=== PATIENT | female | born 1980 | race Caucasian/White ===

== ENCOUNTER 2019-03-05 06:37 | Day surgery (SDC) | payer BC, SELFPAY ==
[2019-03-03 11:32] VITALS: BMI 61.6
--- NOTE | 2019-03-03 12:22 | ANES.PREANES ---
Pre-Anesthetic Assessment Pre-Anesthetic Assessment: Height/Weight: Height 1.57 m Weight 152.861 kg Proposed Procedure: Operation Date: 03/05/19 07:00 Proposed Procedures p Laparoscopic Tubal Fulguration 06038 With Salpingectomy(Not Applicable) - Koby Marquez MD s Laparoscopic Salpingectomy 32937(Not Applicable) - Koby Marquez MD Social: Social History: No alcohol and No tobacco Airway: Cervical ROM: WNL MP: 2 Dentition: Full Pulmonary: Pulmonary: None reported CV/HEM: CV/HEM: None reported : : None reported Hepatic: Hepatic: None reported GI: GI: GERD Metabolic: Metabolic: Morbid obesity Musc/skel: Musc/skel: None reported Neuropsych: Neuropsych: Anxiety and Depression Anesthetic Plan: ASA status: II Anesthesia: General PFSH Anesthesia PFSH: Family History Grandfather Diabetes maternal Grandmother Diabetes paternal Cervical cancer maternal Father Hypertension Family/Other Heart disease paternal uncle Eye problem paternal and maternal uncle Social History Smoking and tobacco status: never smoked Alcohol intake: never Substance/Drug Use: never Additional social history: poorly balanced diet Data Anesthesia Cardiac Studies: No Data to Display
[2019-03-03 13:02] LABS: OR HCG Qualitative Urine Negative (Negative)
[2019-03-03 13:53] LABS: Add Urine Microscopic? NO
[2019-03-03 14:02] LABS: Bilirubin Urine 1+ (NEGATIVE); Blood Urine Neg (Negative); Glucose Urine UA Norm (Normal); Ketones Urine Negative (Negative); Leukocyte Esterase Urine Negative (Negative); Nitrate Urine Negative (Negative); Protein Urine Neg (Negative); Specific Gravity, Urine 1.025 (1.005-1.030); Urine Appearance Clear (CLEAR); Urine Color Yellow (Yellow); Urobilinogen Urine 1 mg/dL (Negative)
[2019-03-03 17:30] LABS: Basophils % 0.2 %; Eosinophils # 0.2 10^3/uL (0.0-0.8); Eosinophils % 2.6 %; Lymphocytes # 2.6 10^3/uL (0.8-4.8); Lymphocytes % 29.2 %; Mean Corpuscular Hemoglobin 26.2 pg (28.0-34.0); Mean Corpuscular Volume 84.5 fL (81-99); Mean Platelet Volume 10.6 fL (7.4-10.4); Monocytes # 0.6 10^3/uL (0.2-0.9); Neutrophils # 5.3 10^3/uL (1.8-7.7); Neutrophils % 60.7 %; Nucleated Red Blood Cells % 0 %; Platelet Count 346 10^3/cmm (130-400); Red Blood Count 4.97 10^6/uL (4.1-5.3); Red Cell Distribution Width 13.5 % (12.1-15.1); White Blood Count 8.7 10^3/uL (4.0-10.0)
[2019-03-04 01:42] LABS: Blood Urea Nitrogen 15 mg/dL (6-20); Calcium 9.9 mg/Dl (8.6-10.0); Chloride 99 mmol/L (98-107); Glomerular Filtration Rate 111.9 mL/min (90-130); Glucose 95 mg/dL (74-109); Potassium 4.3 mmol/L (3.5-5.1); Sodium 136 mmol/L (136-145)
[2019-03-04 02:00] LABS: Anion Gap 19.3 (5-19); Carbon Dioxide 22 mmol/L (22-29)
[2019-03-05] VITALS (10 sets, daily range): BP systolic 145–173; BP diastolic 78–105; PULSE 47–74; RESP 15–20; TEMP 36.2–36.8; O2SAT 91–97
[2019-03-05] MEDS: sodium chloride 0.9% 1,000 ML 30 ML IV (07:05)
--- NOTE | 2019-03-05 07:33 | PM.HPUD ---
H&P update H&P Update: DATE OF SURGERY/PROCEDURE: 03/05/19 DATE H&P PERFORMED: 03/03/19 H&P UPDATE INFORMATION: H&P completed within last 30 days, No changes to prior documentation and H&P is in [facility] EMR on date indicated PREOP DIAGNOSIS: Desire permanent sterilization PLANNED PROCEDURE: Operation Date: 03/05/19 08:15 Proposed Procedures p Laparoscopic Tubal Fulguration 52575 With Salpingectomy(Not Applicable) - Koby Marquez MD s Laparoscopic Salpingectomy 92757(Not Applicable) - Koby Marquez MD Full H&P Medications/Allergies: Current Medications: Current Medications Generic Name Dose Route Start Last Admin Trade Name Freq PRN Reason Stop Dose Admin Sodium Chloride 1,000 mls @ 30 ml s/hr 03/05/19 06:00 03/05/19 07:05 Sodium Chloride 0.9% IV 03/06/19 05:59 30 mls/hr .Q24H SANCHEZ Administration Perinent History: Family History: Family History (Updated 02/25/19 @ 11:36 by Jessica Leiva RN) Grandfather Diabetes maternal Grandmother Diabetes paternal Cervical cancer maternal Father Hypertension Family/Other Heart disease paternal uncle Eye problem paternal and maternal uncle Social History: Social History Smoking and tobacco status: never smoked Alcohol intake: never Additional social history: poorly balanced diet
--- NOTE | 2019-03-05 10:11 | PM.PN ---
Subjective Subjective: Interval history: 38-year-old female G2, P2 scheduled for laparoscopic bilateral salpingectomy for undesired fertility. Vitals/I&O/Wt Last Vital Signs Temp 97.2 F L 03/05/19 06:47 Pulse 74 03/05/19 06:47 Resp 18 03/05/19 06:47 BP 145/100 03/05/19 06:47 Pulse Ox 97 03/05/19 06:47 Weight last 48 hrs Weight 337 lb A&P Additional A&P Information Additional A&P Information: After general anesthesia was initiated, patient could not ventilate properly and for safety reasons the case was canceled. Attestations Medical Necessity Statement*: My professional opinion per my admitting diagnosis Coding Level of Care Code Acute Change Number Operator for Ledy Chaudhari
--- NOTE | 2019-03-05 10:21 | SUR.PHASEI ---
1017- RECEIVED PATIENT IN PACU FROM OR VIA [facility]. RESP ARE EVEN AND NONLABORED. SHE IS AWAKE AND ALERT, DROWSY. SIMPLE MASK APPLIED AT 6LPM, SAT 92%. NO S/S PAIN OR NAUSEA. DR. GIFFORD AT THE BEDSIDE
[2019-03-05] MEDS: ondansetron 2 mg/ML SDV 2 mL 4 MG IVP (10:37)
--- NOTE | 2019-03-05 11:10 | SUR.PHASEI ---
1050- TRANSFERRED PATIENT FROM PACU TO OPS [facility]IA [facility]. RESP ARE EVEN AND NONLABORED. SAT 97% WITH 2L/NC. SHE IS AWAKE AND ALERT, DROWSY. DENIES PAIN. TRANSITION OF CARE TO [facility]
--- NOTE | 2019-03-05 13:27 | ANE.PACU ---
 Inpatient post-anesthesia follow up: Airway intact: Yes Vital signs: Temperature 98.1 F Pulse Rate [Right Radial] 47 Pulse Rate [Left A pical] 54 Respiratory Rate 18 Blood Pressure [Le ft Calf] 165/98 Blood Pressure [Ri ght Arm] 145/100 Pulse Oximetry 95 Oxygen Delivery Me thod Room Air Oxygen Flow Rate 2 Fraction of Inspir ed Oxygen Hydration adequate: Yes Nausea and vomiting: No Pain level: 1 Mental status: Baseline Additional Comments: Procedure aborted due to high peak airway pressure (>45 with low tidal volumes, resistant to albuterol, deepening of anesthestic, and repositioning (reverse T). Occured after intubation before incision or abdominal insufflation. Patient denies recent colds or viruses or asthma.
== END 2019-03-05 12:05 | disposition home or self-care (01) ==
PROVIDERS: Family Provider Nurse Practitioner Family; PCP Nurse Practitioner Family; Visit Provider Obstetrics & Gynecology
PROC: (CPT 58670; principal; 2019-03-05 08:15)
DX: Z53.8 Procedure and treatment not carried out for other reasons (principal); Z30.2 Encounter for sterilization; E66.01 Morbid (severe) obesity due to excess calories; Z68.44 Body mass index [BMI] 60.0-69.9, adult; Z82.49 Family history of ischemic heart disease and other diseases of the circulatory system; Z83.3 Family history of diabetes mellitus
CPT/HCPCS: 58670; 36415; 80048; 81003; 84703; 85025; 86850; 86900; J0330; J0690; J2001; J2405; J2704; J2710; J3010; J3490; J3535; J7030

== ENCOUNTER → 2019-04-08 09:34 | Outpatient (BNVA) | payer BC, SELFPAY | PROVIDERS: Visit Provider Family Medicine | DX: E55.9 Vitamin D deficiency, unspecified (principal); I10 Essential (primary) hypertension | CPT/HCPCS: 80053; 80061; 82306; 85025 ==

== ENCOUNTER 2019-04-15 09:04 | Outpatient (CLI) | payer BC, SELFPAY ==
--- NOTE | 2019-04-15 09:10 | XR_ITS ---
WS: [id number] XR chest 2V* [id number] REASON FOR EXAM: shortness of breath FINDINGS: The heart and mediastinal interfaces were normal. The lung paredes are adequately aerated. No pneumonia, pleural effusion, pulmonary edema, or mass effe ct. The hilum and apices are normal. No osseous abnormalities. XR/XR chest 2V* [id number] IMPRESSION: Negative chest for active pathology.
== END 2019-04-15 09:05 | disposition home or self-care (01) ==
LOC: RAD 09:07
PROVIDERS: Visit Provider Internal Medicine Critical Care Medicine
DX: R06.02 Shortness of breath (principal)
CPT/HCPCS: 71046

== ENCOUNTER → 2019-10-10 10:30 | Outpatient (BNVA) | payer BC, SELFPAY | PROVIDERS: Visit Provider Nurse Practitioner Family | DX: I10 Essential (primary) hypertension (principal); E55.9 Vitamin D deficiency, unspecified | CPT/HCPCS: 80053; 80061; 82306; 82607; 83735; 84443; 85025 ==

== ENCOUNTER → 2020-01-14 08:53 | Outpatient (BNVA) | payer BC, SELFPAY | PROVIDERS: Visit Provider Nurse Practitioner Family | DX: I10 Essential (primary) hypertension (principal); E55.9 Vitamin D deficiency, unspecified; G43.009 Migraine without aura, not intractable, without status migrainosus; G47.00 Insomnia, unspecified; F41.9 Anxiety disorder, unspecified; F32.9 Major depressive disorder, single episode, unspecified; K21.9 Gastro-esophageal reflux disease without esophagitis | CPT/HCPCS: 80053; 80061; 82306; 84443; 85025 ==

== ENCOUNTER → 2020-01-28 13:38 | Outpatient (BNVA) | payer BC, SELFPAY | PROVIDERS: Visit Provider Nurse Practitioner Family | DX: Z20.828 Contact with and (suspected) exposure to other viral communicable diseases (principal); J06.9 Acute upper respiratory infection, unspecified | CPT/HCPCS: 87635 ==

== ENCOUNTER → 2020-03-30 09:46 | Outpatient (BNVA) | payer BC, SELFPAY | PROVIDERS: Visit Provider Nurse Practitioner Family | DX: M79.671 Pain in right foot (principal); M77.31 Calcaneal spur, right foot | CPT/HCPCS: 73630 ==

== ENCOUNTER → 2020-06-28 09:26 | Outpatient (BNVA) | payer BC, SELFPAY | PROVIDERS: Visit Provider Nurse Practitioner Family | DX: I10 Essential (primary) hypertension (principal); E55.9 Vitamin D deficiency, unspecified; R19.7 Diarrhea, unspecified; F41.9 Anxiety disorder, unspecified; F32.9 Major depressive disorder, single episode, unspecified; G47.00 Insomnia, unspecified; K21.9 Gastro-esophageal reflux disease without esophagitis; G43.009 Migraine without aura, not intractable, without status migrainosus | CPT/HCPCS: 80053; 80061; 82306; 82607; 83735; 84443; 85025 ==

== ENCOUNTER → 2020-06-29 12:11 | Outpatient (BNVA) | payer BC, SELFPAY | PROVIDERS: Visit Provider Nurse Practitioner Family | DX: R19.7 Diarrhea, unspecified (principal) | CPT/HCPCS: 83630; 87493; 87506 ==

== ENCOUNTER → 2020-07-31 13:16 | Outpatient (BNVA) | payer BC, SELFPAY | PROVIDERS: Visit Provider Nurse Practitioner Family | DX: M77.32 Calcaneal spur, left foot (principal); M79.672 Pain in left foot | CPT/HCPCS: 73630 ==

== ENCOUNTER → 2020-09-22 10:21 | Outpatient (BNVA) | payer BC, SELFPAY | PROVIDERS: Visit Provider Nurse Practitioner Family | DX: J06.9 Acute upper respiratory infection, unspecified (principal); Z20.822 Contact with and (suspected) exposure to COVID-19 | CPT/HCPCS: 87635 ==

== ENCOUNTER → 2020-09-29 09:05 | Outpatient (BNVA) | payer BC, SELFPAY | PROVIDERS: Visit Provider Nurse Practitioner Family | DX: R19.7 Diarrhea, unspecified (principal) | CPT/HCPCS: 87338; 87493; 87506 ==

== ENCOUNTER 2020-10-11 13:21 | Outpatient (CLI) | payer BC, SELFPAY | END 2020-10-11 13:22 | disposition home or self-care (01) | LOC: LAB 11-16 12:16 | PROVIDERS: Visit Provider Nurse Practitioner Family | DX: R10.9 Unspecified abdominal pain (principal) | CPT/HCPCS: 80053; 81000; 85025 ==

== ENCOUNTER 2020-10-26 08:49 | Outpatient (CLI) | payer BC, SELFPAY ==
[2020-10-26] MEDS: iohexol 300 mg/mL 100 mL Btl IV (09:32)
--- NOTE | 2020-10-26 10:30 | CT_ITS ---
WS: [id number] CT ABDOMEN PELVIS TECHNIQUE: Contrast-enhanced CT of the abdomen and pelvis with coronal and sagittal reformatted image s. CLINICAL INFORMATION: R10.30 - Lower abdominal pain, unspecified COMPARISON: CT August 31, 2016 DLP: 2485.[address] scans at [facility] use at least one of these dose optimization techniques: automat ed exposure control; mA and/or kV adjustment per patient size (includes targeted exams where dose is matched to clinical indication); or iterative reconstruction. FINDINGS: Hepatomegaly. Diffuse fatty infiltration of the liver. Normal gallbladder. Normal spleen. Lung bases are well aerated. Stable tiny noncalcified nodule anterior right upper lobe unchanged since 2017. Nor mal GE junction. Adrenal glands are normal. Normal renal parenchymal enhancement. No hydronephrosis. Normal pancreas. Normal caliber abdominal aorta. Normal sigmoid colon. No evidence of small or large bowel obstruction. No abdominal or pelvic lymphad enopathy. Tiny fat-containing umbilical hernia. No free fluid in the pelvis. Number lumbar spine. CT/CT abdomen pelvis w con* [id number] IMPRESSION: 1. Diffuse fatty infiltration of the liver. Hepatomegaly. 2. No hydronephrosis in either kidney. Normal renal parenchymal enhancement. 3. Normal caliber abdominal aorta. 4. No abdominal or pelvic lymphadenopathy. 5. No evidence of small or large bowel obstruction. 6. No free fluid in the pelvis. 7. Tiny fat-containing umbilical hernia. 8. No other significant findings.
== END 2020-10-26 08:50 | disposition home or self-care (01) ==
PROVIDERS: Visit Provider Nurse Practitioner Family
DX: R10.30 Lower abdominal pain, unspecified (principal); K76.0 Fatty (change of) liver, not elsewhere classified; K42.9 Umbilical hernia without obstruction or gangrene
CPT/HCPCS: 74177; 80053; 81000; 85025; Q9967

== ENCOUNTER → 2021-05-25 16:00 | Outpatient (BNVA) | payer BC, MEDICAID, SELFPAY | PROVIDERS: PCP Nurse Practitioner Family; Visit Provider Nurse Practitioner Family | DX: I10 Essential (primary) hypertension (principal); E66.01 Morbid (severe) obesity due to excess calories; K21.9 Gastro-esophageal reflux disease without esophagitis; E55.9 Vitamin D deficiency, unspecified; Z12.39 Encounter for other screening for malignant neoplasm of breast; F41.9 Anxiety disorder, unspecified; F32.9 Major depressive disorder, single episode, unspecified; G43.009 Migraine without aura, not intractable, without status migrainosus | CPT/HCPCS: 80053; 80061; 82306; 82607; 83036; 83735; 84443; 85025 ==

== ENCOUNTER → 2021-07-15 08:26 | Outpatient (BNVA) | payer BC, MEDICAID, SELFPAY | PROVIDERS: PCP Nurse Practitioner Family; Visit Provider Psychiatry & Neurology Psychiatry | DX: F41.1 Generalized anxiety disorder (principal); F33.1 Major depressive disorder, recurrent, moderate; Z30.013 Encounter for initial prescription of injectable contraceptive; Z30.09 Encounter for other general counseling and advice on contraception | CPT/HCPCS: 99204 ==

== ENCOUNTER 2021-07-28 12:52 | Outpatient (CLI) | payer BC, MEDICAID, SELFPAY ==
--- NOTE | 2021-07-28 13:13 | MM_ITS ---
WS: [id number] BILATERAL 3D TOMOSYNTHESIS DIGITAL SCREENING MAMMOGRAM WITH CAD CLINICAL INFORMATION: SCREENING HISTORY: Screening mammogram. No current complaints. COMPARISON: None. TECHNIQUE: Bilateral CC and MLO views. FINDINGS: Fatty-replaced breasts bilaterally. No suspicious focal mass, asymmetry, calcifications, or senior software architect ural distortion. No evidence of malignancy. MM/[place] [id number] IMPRESSION: BI-RADS: 1-Negative FOLLOW UP: 1 Year Follow-up Recommend return to annual screening mammography.
== END 2021-07-28 12:53 | disposition home or self-care (01) ==
LOC: RAD 12:57
PROVIDERS: PCP Nurse Practitioner Family; Visit Provider Nurse Practitioner Family
DX: Z12.31 Encounter for screening mammogram for malignant neoplasm of breast (principal)
CPT/HCPCS: 77063; 77067

== ENCOUNTER 2022-06-26 20:00 | Outpatient (CLI) | payer BC, SELFPAY | END 2022-06-26 20:01 | disposition home or self-care (01) | LOC: SLEEP 06-27 06:23 | PROVIDERS: PCP Nurse Practitioner Family; Visit Provider Nurse Practitioner Family | DX: G47.33 Obstructive sleep apnea (adult) (pediatric) (principal) | CPT/HCPCS: 95810 ==

== ENCOUNTER → 2022-08-24 14:56 | Outpatient (BNVA) | payer BC, MEDICAID, SELFPAY | PROVIDERS: PCP Nurse Practitioner Family; Visit Provider Nurse Practitioner Family | DX: M19.071 Primary osteoarthritis, right ankle and foot (principal); M77.31 Calcaneal spur, right foot | CPT/HCPCS: 73630 ==

== ENCOUNTER 2022-09-04 14:50 | Outpatient (CLI) | payer BC, MEDICAID, SELFPAY ==
--- NOTE | 2022-09-04 14:57 | MM_ITS ---
WS: [id number] BILATERAL 3D TOMOSYNTHESIS DIGITAL SCREENING MAMMOGRAM WITH CAD CLINICAL INFORMATION: SCREENING HISTORY: Screening mammogram. No current complaints. COMPARISON: July 28, 2021 TECHNIQUE: Bilateral CC and MLO views. FINDINGS: Fatty-replaced breasts bilaterally. No suspicious focal mass, asymmetry, calcifications, or sap technical architect ural distortion. No evidence of malignancy. MM/[place] [id number] IMPRESSION: BI-RADS: 1-Negative FOLLOW UP: 1 Year Follow-up Recommend return to annual screening mammography.
== END 2022-09-04 14:51 | disposition home or self-care (01) ==
PROVIDERS: PCP Nurse Practitioner Family; Visit Provider Nurse Practitioner Family
DX: Z12.31 Encounter for screening mammogram for malignant neoplasm of breast (principal)
CPT/HCPCS: 77063; 77067

== ENCOUNTER 2022-12-07 16:06 | Outpatient (CLI) | payer BC, MEDICAID, SELFPAY ==
--- NOTE | 2022-12-07 16:25 | XRR_ITS ---
PROCEDURE INFORMATION: Exam: XR Left Knee Exam date and time: 12/07/2022 4:27 PM Age: 41 years old Clinical indication: Patient HX: Left knee pain for 1 month; Additional info: Body mass index (bmi) 70 or greater TECHNIQUE: Imaging protocol: Radiologic exam of the left knee. Views: 3 views. COMPARISON: CR XR knee LT 3V* [id number] 02/09/2016 11:55 AM FINDINGS: Bones/joints: No fracture or other acute abnormality. There is medial compartment joint space narrowing. Small tricompartmental periarticular osteophytes are seen. The knee is otherwise normal. Soft tissues: Normal. XR/XR knee LT 3V* [id number] IMPRESSION: Degenerative findings predominantly in the medial compartment. This has progressed since the prior examination.
== END 2022-12-07 16:07 | disposition home or self-care (01) ==
LOC: RAD 16:10
PROVIDERS: PCP Nurse Practitioner Family; Visit Provider Nurse Practitioner Family
DX: M25.562 Pain in left knee (principal); Z68.45 Body mass index [BMI] 70 or greater, adult; M23.8X2 Other internal derangements of left knee
CPT/HCPCS: 73562

== ENCOUNTER → 2023-01-11 14:18 | Outpatient (BNVA) | payer BC, SELFPAY | PROVIDERS: PCP Nurse Practitioner Family; Visit Provider Student in an Organized Health Care Education/Training Program | DX: M17.12 Unilateral primary osteoarthritis, left knee; E66.01 Morbid (severe) obesity due to excess calories; Z68.45 Body mass index [BMI] 70 or greater, adult | CPT/HCPCS: 73560; 73565 ==

== ENCOUNTER 2023-01-24 07:00 | Day surgery (SDC) | payer BC, MEDICAID, SELFPAY ==
[2023-01-24 07:23] VITALS: BP 169/96; PULSE 83; RESP 18; TEMP 36.4; O2SAT 97; BMI 75.9
--- NOTE | 2023-01-24 07:46 | P.ANESASSM_ITS ---
Pre-Anesthetic Assessment Height/Weight: Height 1.57 m Weight 188.241 kg Temp Pulse Resp BP Pulse Ox O2 Del Method 97.6 F 83 18 169/96 97 Room Air 01/24/23 07:23 01/24/23 07:23 01/24/23 07:23 01/24/23 07:23 01/24/23 07:23 01/24/23 07:23 Operation Date: 01/24/23 08:00 Proposed Procedures p 88033 egd [id number] diagnostic colonoscopy, G0121 screen colon A risk k52.9,k92.1,k90.9(Not Applicable) - DO patricia Miles Colonoscopy(Not Applicable) - Damien Gallegos DO Familial anesthetic complications: none Last intake: Intake Last Liquid Date 01/23/23 Last Liquid Time 22:00 Last Solid Date 01/22/23 Last Solid Time 17:00 Social No alcohol and No tobacco Exam alert, oriented x 3, clear to auscultation bilaterally and regular rate & rhythm Airway Submandibular: within normal limits Cervical ROM: within normal limits Mallampati: Class II Comments: Comments: WNL History/ROS No significant history except as noted Pulmonary Sleep Apnea CV/HEM None reported None reported Hepatic None reported Metabolic Morbid Obesity [facility] Osteoarthritis/DJD (left knee) Neuropsych Anxiety and Depression Anesthetic Plan ASA status: 3 Anesthesia: Anesthesia Evaluation and MAC Risk of > 500 ml blood loss (7ml/kg in children): No Medications/Allergies Home Medications Medication Instructions Recorded Confirmed Last Taken Type omeprazole 20 mg capsule,delayed 20 mg PO BID #180 caps 05/25/21 01/24/23 01/22/23 Rx release propranolol 40 mg tablet 40 mg PO BID 90 days #180 tabs 05/25/21 01/24/23 01/22/23 Rx sumatriptan succinate 100 mg tablet See Rx Instructions PO .COMPLEX 05/25/21 01/22/23 Unknown Rx #10 tabs acetaminophen 325 mg capsule 325 mg PO DAILY PRN Pain 07/15/21 01/24/23 Unknown History (Tylenol) ibuprofen 200 mg tablet 800 mg PO BID PRN fever or pain 07/15/21 01/24/23 Unknown History cholecalciferol (vitamin D3) 1,250 See Rx Instructions .Route 11/18/21 01/24/23 01/22/23 Rx mcg (50,000 unit) capsule .COMPLEX #4 caps medroxyprogesterone 150 mg/mL mg IM .Q 3 months 04/24/22 01/11/23 01/10/23 History intramuscular suspension (Depo-Provera) aripiprazole 5 mg tablet 5 mg PO DAILY #30 tabs 01/01/23 01/24/23 01/22/23 Rx bupropion HCl 150 mg 24 hr tablet, 150 mg PO QAM #30 tabs 01/01/23 01/24/23 01/22/23 Rx extended release (Wellbutrin XL) buspirone 10 mg tablet 10 mg PO BID #60 tabs 01/01/23 01/24/23 01/22/23 Rx sertraline 100 mg tablet 200 mg (2 x 100 mg) PO DAILY #60 01/01/23 01/24/23 01/22/23 Rx tabs Allergies Allergy/AdvReac Type Severity Reaction Status Date / Time No Known Allergies Allergy Verified 01/11/23 14:21 [facility] Anesthesia Medical History GERD (gastroesophageal reflux disease) Hypertension Migraines Obesity, morbid (more than 100 lbs over ideal weight or BMI > 40) Psychiatric care Surgical History History of appendectomy 08/31/2016 History of delivery x2 Family History Grandfather Diabetes maternal Grandmother Diabetes paternal Cervical cancer maternal Father Hypertension Family/Other Heart disease paternal uncle Eye problem paternal and maternal uncle Social History Smoking and tobacco/nicotine status: never used tobacco/nicotine Second hand smoke exposure: Yes (Sometimes.) Alcohol intake: current Alcohol intake frequency: holidays/special occasions only Alcohol type: other Substance/Drug Use: never Lives independently: Yes Household members: family service: No Current occupational status: employed Current occupation: [employer] Current occupational exposures/hazards: No Do you think of yourself as: Straight/Heterosexual Current gender identity: Female Special marlene needs: No Agree to transfusion: Yes Data Anesthesia Cardiac Studies: No Data to Display
[2023-01-24] MEDS: sodium chloride 0.9% 1,000 ML 30 ML IV (07:47)
--- NOTE | 2023-01-24 08:08 | PM.HP ---
Providers/Chief Complaint Primary Care Provider: Nelida Wilkins [employer] Chief Complaint: K52.9, K92.1, k90.9 History of Present Illness Elise Costello is a 42 year old female Review of Systems General: Reports: 10 or more systems reviewed and unremarkable except in HPI and below Medications/Allergies Home Medications Medication Instructions Recorded Confirmed Last Taken Type omeprazole 20 mg capsule,delayed 20 mg PO BID #180 caps 05/25/21 01/24/23 01/22/23 Rx release propranolol 40 mg tablet 40 mg PO BID 90 days #180 tabs 05/25/21 01/24/23 01/22/23 Rx sumatriptan succinate 100 mg tablet See Rx Instructions PO .COMPLEX 05/25/21 01/22/23 Unknown Rx #10 tabs acetaminophen 325 mg capsule 325 mg PO DAILY PRN Pain 07/15/21 01/24/23 Unknown History (Tylenol) ibuprofen 200 mg tablet 800 mg PO BID PRN fever or pain 07/15/21 01/24/23 Unknown History cholecalciferol (vitamin D3) 1,250 See Rx Instructions .Route 11/18/21 01/24/23 01/22/23 Rx mcg (50,000 unit) capsule .COMPLEX #4 caps medroxyprogesterone 150 mg/mL mg IM .Q 3 months 04/24/22 01/11/23 01/10/23 History intramuscular suspension (Depo-Provera) aripiprazole 5 mg tablet 5 mg PO DAILY #30 tabs 01/01/23 01/24/23 01/22/23 Rx bupropion HCl 150 mg 24 hr tablet, 150 mg PO QAM #30 tabs 01/01/23 01/24/23 01/22/23 Rx extended release (Wellbutrin XL) buspirone 10 mg tablet 10 mg PO BID #60 tabs 01/01/23 01/24/23 01/22/23 Rx sertraline 100 mg tablet 200 mg (2 x 100 mg) PO DAILY #60 01/01/23 01/24/23 01/22/23 Rx tabs Allergies Allergy/AdvReac Type Severity Reaction Status Date / Time No Known Allergies Allergy Verified 01/11/23 14:21 PFSH Acute PFSH: Medical History GERD (gastroesophageal reflux disease) Hypertension Migraines Obesity, morbid (more than 100 lbs over ideal weight or BMI > 40) Psychiatric care Surgical History History of appendectomy 08/31/2016 History of delivery x2 Family History Grandfather Diabetes maternal Grandmother Diabetes paternal Cervical cancer maternal Father Hypertension Family/Other Heart disease paternal uncle Eye problem paternal and maternal uncle Social History Smoking and tobacco/nicotine status: never used tobacco/nicotine Second hand smoke exposure: Yes (Sometimes.) Alcohol intake: current Alcohol intake frequency: holidays/special occasions only Alcohol type: other Substance/Drug Use: never Lives independently: Yes Household members: family service: No Current occupational status: employed Current occupation: [employer] Current occupational exposures/hazards: No Do you think of yourself as: Straight/Heterosexual Current gender identity: Female Special marlene needs: No Agree to transfusion: Yes Vitals/I&O/Wt Last Vital Signs Temp 97.6 F 01/24/23 07:23 Pulse 83 01/24/23 07:23 Resp 18 01/24/23 07:23 BP 169/96 01/24/23 07:23 Pulse Ox 97 01/24/23 07:23 O2 Del Method Room Air 01/24/23 07:23 Weight last 48 hrs Weight 415 lb A&P Assessment and plan (1) Hematochezia: (2) Chronic diarrhea: (3) Steatorrhea: Plan EGD and colonoscopy Attestations Medical Necessity Statement*: Home Coding Level of Care Code Acute Code for Chg Fwd Diagnoses Hematochezia K92.1 Chronic diarrhea K52.9 Steatorrhea K90.9
[2023-01-24 08:47] VITALS: BP 165/96; PULSE 90; RESP 16; TEMP 36.8; O2SAT 91
[2023-01-24 08:57] VITALS: BP 147/88; PULSE 68; RESP 18; O2SAT 96
[2023-01-24 09:06] VITALS: BP 146/69; PULSE 70; RESP 18; O2SAT 96
--- NOTE | 2023-01-24 13:28 | ANE.PACU2 ---
Inpatient post-anesthesia follow up: Airway intact: Yes Vital signs: Temperature 98.3 F Pulse Rate 70 Respiratory Rate 18 Blood Pressure 146/69 Pulse Oximetry 96 Oxygen Delivery Me thod Room Air Oxygen Flow Rate Fraction of Inspir ed Oxygen Hydration adequate: Yes Nausea and vomiting: No Pain level: 1 Mental status: Baseline
[2023-01-25 16:44] LABS: Clostridium Difficile PCR NOT DETECTED (NOT DETECTED)
== END 2023-01-24 09:30 | disposition home or self-care (01) ==
PROVIDERS: PCP Nurse Practitioner Family; Visit Provider Surgery
PROC: 0DJ08ZZ Inspection of Upper Intestinal Tract, Via Natural or Artificial Opening Endoscopic (ICD-10-PCS; CPT 43235; principal; 2023-01-24 08:00)
PROC: 0DJD8ZZ Inspection of Lower Intestinal Tract, Via Natural or Artificial Opening Endoscopic (ICD-10-PCS; CPT 45378; 2023-01-24 08:00)
DX: K92.1 Melena (principal); K29.50 Unspecified chronic gastritis without bleeding; K21.9 Gastro-esophageal reflux disease without esophagitis; I10 Essential (primary) hypertension; E66.01 Morbid (severe) obesity due to excess calories; Z68.45 Body mass index [BMI] 70 or greater, adult; K64.8 Other hemorrhoids; G47.30 Sleep apnea, unspecified
CPT/HCPCS: 43239; 45380; 76937; 82274; 83630; 87045; 87177; 87209; 87427; 87449; 87493; 88305; 88342; J2704; J7030

== ENCOUNTER 2023-02-22 06:58 | Outpatient (CLI) | payer BC, MEDICAID, SELFPAY ==
--- NOTE | 2023-02-22 07:15 | USR_ITS ---
PROCEDURE INFORMATION: Exam: US Abdomen; Limited Exam date and time: 02/22/2023 7:04 AM Age: 42 years old Clinical indication: Abdominal pain; Localized; Lower; Additional info: Lower abdominal pain TECHNIQUE: Imaging protocol: Real time ultrasound of the abdomen with image documentation. Limited exam focused on the region of clinical interest. COMPARISON: CT abdomen pelvis w con* [id number] 10/26/2020 9:22 AM FINDINGS: Liver: The liver demonstrates increased echogenicity suggesting hepatic steatosis. The liver is not enlarged. Gallbladder: The gallbladder is normal. Biliary ducts: The intra and extrahepatic biliary system is normal. Right kidney: The right kidney is normal. US/US gall bladder [id number] IMPRESSION: No significant abnormality.
== END 2023-02-22 06:59 | disposition home or self-care (01) ==
LOC: RAD 06:58
PROVIDERS: PCP Nurse Practitioner Family; Visit Provider Surgery
DX: R10.9 Unspecified abdominal pain (principal)
CPT/HCPCS: 76705

== ENCOUNTER 2023-04-10 09:32 | Outpatient (CLI) | payer BC, MEDICAID, SELFPAY ==
--- NOTE | 2023-04-10 10:00 | NM_ITS ---
WS: [id number] NUCLEAR MEDICINE HIDA SCAN WITH GALLBLADDER EJECTION FRACTION HISTORY: abdominal pain COMPARISON: Gallbladder ultrasound 02/22/2023 TECHNIQUE: The patient was intravenously injected with 7.4 mCi of TC99m Mebrofenin. Immediate imaging over the right upper quadrant was followed by 5 minute image and additional images for a total of 60 minutes. Normal uptake of radiotracer throughout the liver. Activity identified in the gallbladder at 10 minutes and well distended by 60 minutes. Activity in the proximal small bowel was seen by 40 minutes. Good washout of the radiotracer from the liver by 60 minutes. The patient then drank 8 ounces of Ensure Plus. Ejection fraction at 60 minutes was 68%. Normal GB ej ection fraction is 35-75%. Post fatty meal symptoms: None. IMPRESSION: 1. Normal HIDA scan. 2. Normal gallbladder ejection fraction.
== END 2023-04-10 09:33 | disposition home or self-care (01) ==
LOC: RAD 09:32
PROVIDERS: PCP Nurse Practitioner Family; Visit Provider Surgery
DX: R10.30 Lower abdominal pain, unspecified (principal)
CPT/HCPCS: 78227; A9537

== ENCOUNTER 2023-05-03 06:48 | Day surgery (SDC) | payer BC, MEDICAID, SELFPAY ==
[2023-05-03] VITALS (22 sets, daily range): BP systolic 130–173; BP diastolic 77–119; PULSE 72–86; RESP 16–31; TEMP 36.1–36.6; O2SAT 91–96; BMI 75.5
[2023-05-03 07:30] LABS: OR HCG Qualitative Urine Negative (Negative)
[2023-05-03] MEDS: sodium chloride 0.9% 1,000 ML 30 ML IV (07:31)
--- NOTE | 2023-05-03 07:43 | W.PM.OPSUD ---
Surgery/Procedure H&P Update DATE OF PROCEDURE: May 03, 2023 DATE H&P PERFORMED: 04/19/23 H&P UPDATE INFORMATION: I have reviewed H&P completed within last 30 days, I have examined patient prior to procedure and No changes to prior documentation PLANNED PROCEDURE: Operation Date: 05/03/23 08:30 Proposed Procedures p 89138 lap mirtha R10.30(Not Applicable) - Damien Gallegos, DO
--- NOTE | 2023-05-03 08:04 | ANES.PREANE2 ---
Pre-Anesthetic Assessment Height/Weight: Height 1.57 m Weight 187.334 kg Temp Pulse Resp BP Pulse Ox O2 Del Method 97.1 F L 86 18 157/100 96 Room Air 05/03/23 07:17 05/03/23 07:17 05/03/23 07:17 05/03/23 07:17 05/03/23 07:17 05/03/23 07:17 Operation Date: 05/03/23 08:30 Proposed Procedures p [id number] lap mirtha R10.30(Not Applicable) - Damien Gallegos DO Familial anesthetic complications: none Last intake: Intake Last Liquid Date 05/02/23 Last Liquid Time 18:00 Last Solid Date 05/02/23 Last Solid Time 20:00 Social No alcohol and No tobacco Exam alert, oriented x 3, clear to auscultation bilaterally and regular rate & rhythm Airway Submandibular: within normal limits Cervical ROM: within normal limits Mallampati: Class II Comments: Comments: WNL History/ROS No significant history except as noted Pulmonary Sleep Apnea CV/HEM None reported None reported Hepatic None reported Metabolic Morbid Obesity [facility] [place] Osteoarthritis/DJD (left knee) Neuropsych Anxiety and Depression Anesthetic Plan ASA status: 3 Anesthesia: General Risk of > 500 ml blood loss (7ml/kg in children): No Medications/Allergies Home Medications Medication Instructions Recorded Confirmed Last Taken Type omeprazole 20 mg capsule,delayed 20 mg PO BID #180 caps 05/25/21 05/03/23 05/02/23 Rx release propranolol 40 mg tablet 40 mg PO BID 90 days #180 tabs 05/25/21 05/03/23 05/02/23 Rx sumatriptan succinate 100 mg tablet See Rx Instructions PO .COMPLEX 05/25/21 05/02/23 Unknown Rx #10 tabs acetaminophen 325 mg capsule 325 mg PO DAILY PRN Pain 07/15/21 05/02/23 Unknown History (Tylenol) ibuprofen 200 mg tablet 800 mg PO BID PRN fever or pain 07/15/21 05/02/23 Unknown History medroxyprogesterone 150 mg/mL 150 mg IM .Q 3 months 04/24/22 05/03/23 05/02/23 History intramuscular suspension (Depo-Provera) aripiprazole 5 mg tablet 5 mg PO DAILY #30 tabs 04/02/23 05/03/23 05/02/23 Rx bupropion HCl 150 mg 24 hr tablet, 150 mg PO QAM #30 tabs 04/02/23 05/03/23 05/02/23 Rx extended release (Wellbutrin XL) buspirone 10 mg tablet 10 mg PO BID #60 tabs 04/02/23 05/03/23 05/02/23 Rx sertraline 100 mg tablet 200 mg (2 x 100 mg) PO DAILY #60 04/02/23 05/03/23 05/02/23 Rx tabs cholecalciferol (vitamin D3) 125 125 mcg PO DAILY 05/03/23 05/03/23 05/02/23 History mcg (5,000 unit) tablet (Vitamin D3) Allergies Allergy/AdvReac Type Severity Reaction Status Date / Time No Known Allergies Allergy Verified 05/02/23 14:09 Current Medications Generic Name Dose Route Start Last Admin Trade Name Freq PRN Reason Stop Dose Admin Sodium Chloride 1,000 mls @ 30 mls/hr 05/03/23 07:15 05/03/23 07:31 Sodium Chloride 0.9% IV 05/04/23 07:14 30 mls/hr .Q24H SANCHEZ Administration PFSH Anesthesia Medical History Psychiatric care GERD (gastroesophageal reflux disease) Hypertension Migraines Obesity, morbid (more than 100 lbs over ideal weight or BMI > 40) Surgical History History of appendectomy 08/31/2016 History of delivery x2 Family History Grandfather Diabetes maternal Grandmother Diabetes paternal Cervical cancer maternal Father Hypertension Family/Other Heart disease paternal uncle Eye problem paternal and maternal uncle Social History Smoking and tobacco/nicotine status: never used tobacco/nicotine Second hand smoke exposure: Yes (Sometimes.) Alcohol intake: current Alcohol intake frequency: holidays/special occasions only Alcohol type: other Substance/Drug Use: never Lives independently: Yes Household members: family service: No Current occupational status: employed Current occupation: [employer] Current occupational exposures/hazards: No Do you think of yourself as: Straight/Heterosexual Current gender identity: Female Special marlene needs: No Agree to transfusion: Yes Data Anesthesia Cardiac Studies: No Data to Display
[2023-05-03] MEDS: ceFAZolin 1,000 mg SDV 1000 MG IVP (08:14)
[2023-05-03] MEDS: ceFAZolin 2,000 MG in sodium chloride 0.9% (plus) 50 ML 100 MG IV (08:14)
[2023-05-03] MEDS: lidocaine-epi 2% PF 1:200,000 20 mL SDV XX (08:48)
--- NOTE | 2023-05-03 09:12 | P.OP_ITS ---
Operative Report Date of procedure: May 03, 2023 Surgeon: Damien Gallegos DO Brief History: This very pleasant 42-year-old female with longstanding history of right upper quadrant abdominal pain rating to her back with nausea vomiting diarrhea after eating. She is diagnosed with biliary colic and right upper quadrant syndrome. The risks and benefits of the procedure, especially the fact that there is a 20 to 30% chance that cholecystectomy does not relieve all of her symptoms, were explained to the patient. She is understanding of the risks and wished to proceed. Procedure: Preoperative diagnosis: Biliary colic, right upper quadrant syndrome Postoperative diagnosis: Same Procedure performed: Laparoscopic cholecystectomy Surgeon: Dr. Damien Gallegos DO Estimated blood loss: 50 mL Specimens: Gallbladder to pathology Complications: None apparent Description of procedure: Patient was wheeled into the operative room and placed on the OR table in a supine position. Abdomen was inspected prepped and draped in usual sterile fashion. Time-out was performed and all present were in agreement. A 15 blade scalp was used to make a stab incision in the left upper quadrant and intra- abdominal insufflation was achieved using a Veress needle. After localizing the tissue incisions were made and a 5 millimeter trocar was placed into the umbilicus as well as 2 in the right upper quadrant. A 12 millimeter trocar was placed in the epigastrium. Gallbladder was grasped and elevated. The triangle of Calot was carefully dissected using blunt dissection and electrocautery until the triangle of Calot clearly identified. The cystic duct was clipped proximally and double clipped distally. The duct was then ligated proximally. The cystic artery was doubly clipped and ligated. The gallbladder was then removed from the liver bed using electrocautery. The gallbladder was removed from the abdomen using an Endo-Catch bag through the epigastric incision. The liver bed was inspected and no bleeding was seen. The abdomen was irrigated and suctioned. All ports removed. Skin was washed and dried. Incisions were closed with 4-0 Monocryl in a subcuticular interrupted fashion. Skin glue was applied. Patient tolerated the procedure well.
[2023-05-03] MEDS: fentaNYL 50 mcg/mL INJ 2mL IVP ×2 (09:42→09:58)
[2023-05-03] MEDS: ondansetron 2 mg/ML SDV 2 mL 4 MG IVP ×2 (09:43→11:27)
[2023-05-03] MEDS: HYDROmorphone 1 mg/mL INJ 1 mL 0.5 MG IVP ×2 (10:06→10:16)
--- NOTE | 2023-05-03 10:13 | PC.NURSE ---
Dr longoed to move to [facility] after failed fentanyl pain control in pacu
[2023-05-03] MEDS: HYDROcodone-acetaminophen 7.5-325 mg Tablet 1 TAB PO (11:05)
--- NOTE | 2023-05-03 20:19 | ANE.PACU2 ---
Inpatient post-anesthesia follow up: Airway intact: Yes Vital signs: Temperature 97 F Pulse Rate 78 Respiratory Rate 16 Blood Pressure 162/93 Pulse Oximetry 92 Oxygen Delivery Me thod Room Air Oxygen Flow Rate 2 Fraction of Inspir ed Oxygen Hydration adequate: Yes Nausea and vomiting: No Pain level: 3 Mental status: Baseline
== END 2023-05-03 11:55 | disposition home or self-care (01) ==
PROVIDERS: Anesthesiology; PCP Nurse Practitioner Family; Visit Provider Surgery
PROC: 0FT44ZZ Resection of Gallbladder, Percutaneous Endoscopic Approach (ICD-10-PCS; CPT 47562; principal; 2023-05-03 08:20)
DX: K80.10 Calculus of gallbladder with chronic cholecystitis without obstruction (principal); G47.30 Sleep apnea, unspecified; E66.01 Morbid (severe) obesity due to excess calories; Z68.45 Body mass index [BMI] 70 or greater, adult; K21.9 Gastro-esophageal reflux disease without esophagitis; I10 Essential (primary) hypertension
CPT/HCPCS: 47562; 81025; 84703; 88304; J0330; J0690; J1100; J1170; J1885; J2250; J2405; J2704; J3010; J3490; J3535; J7030

== ENCOUNTER → 2023-06-12 11:52 | Outpatient (BNVA) | payer BC, MEDICAID, SELFPAY | PROVIDERS: PCP Nurse Practitioner Family; Visit Provider Internal Medicine Rheumatology | DX: Z79.899 Other long term (current) drug therapy (principal); M19.071 Primary osteoarthritis, right ankle and foot; M77.31 Calcaneal spur, right foot | CPT/HCPCS: 36415; 73070; 73630; 85651; 86140 ==

== ENCOUNTER 2023-07-29 10:38 | Emergency (ER) | payer BC, MEDICAID, SELFPAY ==
[2023-07-29 10:41] VITALS: BP 139/85; PULSE 92; RESP 16; TEMP 36.5; O2SAT 97
--- NOTE | 2023-07-29 10:54 | USR_ITS ---
PROCEDURE INFORMATION: Exam: US Duplex Right Lower Extremity Veins, Limited Exam date and time: 07/29/2023 11:13 AM Age: 42 years old Clinical indication: Pain; Leg, lower; Right; Additional info: Leg pain swelling TECHNIQUE: Imaging protocol: Real-time duplex ultrasound of the right extremity with 2-D floyd scale, color Doppler flow and spectral waveform analysis including responses to compression and other maneuvers (when performed) with image documentation. Limited exam was focused on the right lower extremity veins. COMPARISON: CR XR foot RT min 3V* [id number] 06/12/2023 12:02 PM FINDINGS: Right deep veins: Deep venous thrombus is present in the right common femoral vein, profunda femoral vein, femoral vein, popliteal vein, peroneal vein, and posterior tibial vein. Superficial veins: Greater saphenous vein at the saphenofemoral junction is patent without thrombus. Soft tissues: Unremarkable. US/[place] [id number] IMPRESSION: Deep venous thrombus is present throughout the right lower extremity large veins, as above.
[2023-07-29 11:16] LABS: Basophils # 0.1 10^3/uL (0.0-0.1); Basophils % 0.4 %; Eosinophils # 0.3 10^3/uL (0.0-0.8); Eosinophils % 2.1 %; Hematocrit 41.1 % (36-47); Lymphocytes # 2.6 10^3/uL (0.8-4.8); Lymphocytes % 21.2 %; Mean Corpuscular HGB Conc 30.7 g/dL (30-55); Mean Corpuscular Hemoglobin 25.1 pg (27-33); Mean Corpuscular Volume 81.9 fl (85-98); Mean Platelet Volume 9.9 fL (7.4-10.4); Monocytes # 0.7 10^3/uL (0.2-0.9); Monocytes % 5.5 %; Neutrophils # 8.55 10^3/uL (1.8-7.7); Neutrophils % 70.1 %; Nucleated Red Blood Cells % 0 %; Platelet Count 292 10^3/cmm (157-399); Red Blood Count 5.02 10^6/uL (3.85-5.65); Red Cell Distribution Width 15.8 % (12.1-15.1); White Blood Count 12.19 10^3/uL (3.29-11.43)
--- NOTE | 2023-07-29 11:18 | W.ED.EXTPRO ---
HPI - Extremity Problem General: Chief complaint: Extremity Problem,Nontraumatic Stated complaint: Right leg pain Time Seen by Provider: 07/29/23 10:54 Source: patient Mode of arrival: ambulatory History of Present Illness: 42-year-old female presents emergency room with complaint of swelling and pain in the right leg. She has had extensive travel recently been very sedentary. No shortness of breath no chest pain no history of DVT. MD Complaint: extremity pain and extremity swelling Associated symptoms: Deny chest pain, fever(s) or rash Review of Systems Const: Denies: fever(s) or chills Card: Denies: chest pain Resp: Denies: dyspnea GI: Denies: abdominal pain : Denies: dysuria, urinary frequency or urinary urgency Musc: Denies: neck pain or back pain Skin/Breast: Denies: rash PFSH ED PFSH: Medical History Osteoarthritis of knees, bilateral Psychiatric care GERD (gastroesophageal reflux disease) Hypertension Migraines Obesity, morbid (more than 100 lbs over ideal weight or BMI > 40) Surgical History Hx laparoscopic cholecystectomy 05/03/23 Dr. olvera History of appendectomy 08/31/2016 History of delivery x2 Family History Grandfather Diabetes maternal Grandmother Diabetes paternal Cervical cancer maternal Father Hypertension Family/Other Heart disease paternal uncle Eye problem paternal and maternal uncle Other Cancer Migraines Social History Smoking and tobacco/nicotine status: never used tobacco/nicotine Second hand smoke exposure: Yes (Sometimes.) Alcohol intake: current Alcohol intake frequency: holidays/special occasions only Alcohol type: other Substance/Drug Use: never Lives independently: Yes Household members: family service: No Current occupational status: employed Current occupation: [employer] Current occupational exposures/hazards: No Do you think of yourself as: Straight/Heterosexual Current gender identity: Female Special marlene needs: No Agree to transfusion: Yes Physical Exam Const: COMMON NORMALS: no acute distress GENERAL APPEARANCE: cooperative and comfortable ORIENTATION/CONSCIOUSNESS: Yes awake, Yes oriented to person, Yes oriented to place and Yes oriented to time HENMT: COMMON NORMALS: normocephalic, atraumatic and hearing grossly normal bilaterally HEAD & SCALP: normocephalic and atraumatic Resp: COMMON NORMALS: normal respiratory effort, No retractions, No use of accessory muscles and clear to auscultation bilaterally AUSCULTATION: clear to auscultation bilaterally Cardio: COMMON NORMALS: regular rate, regular rhythm and No murmurs present (Cardio) RATE: regular rate RHYTHM: regular rhythm GI: COMMON NORMALS: Soft to palpation and No hepatosplenomegaly present AUSCULTATION: Yes normoactive bowel sounds PALPATION: Yes Soft to palpation, No Tenderness to palpation present (GI), No Guarding due to palpation present (GI) and Yes No hepatosplenomegaly present Extremity: COMMON NORMALS: normal to inspection, capillary refill normal, no clubbing, cyanosis or edema, no calf tenderness and no pedal edema Neuro: SENSORIUM/ORIENTATION: Yes oriented to person, Yes oriented to place and Yes oriented to time Skin: COMMON NORMALS: no rashes or lesions noted GENERAL SKIN EXAM: no rashes or lesions noted Course Vital Signs: Vital signs: Vital Signs Temperature 97.7 F 07/29/23 10:41 Pulse Rate 88 07/29/23 12:04 Respiratory Rate 16 07/29/23 10:41 Blood Pressure 130/65 07/29/23 12:04 Pulse Oximetry 95 07/29/23 12:04 Oxygen Delivery Me thod Room Air 07/29/23 11:58 MDM - Extremity (Nontraumatic) Medical Decision Making Extensive DVT right lower extremity Lovenox given. Started on Eliquis. Discussed with patient. If has any chest pain or shortness of breath return as soon as possible. Discussed with the patient that that is important that she stay on the anticoagulant until specifically told that she can stop Medical Records I reviewed the patient's medical records. Lab Data I reviewed the patient's lab results. 07/29/23 11:10 07/29/23 11:10 Radiology Impressions Venous Duplex 07/29/23 10:54 IMPRESSION: Deep venous thrombus is present throughout the right lower extremity large veins, as above. ADDENDUM: 07/29/23 [id number] ADDENDUM: THIS REPORT CONTAINS FINDINGS THAT MAY BE CRITICAL TO PATIENT CARE. The findings were verbally communicated via telephone conference with Dr. Bowser at 12:34 PM CDT on 07/29/2023. The findings were acknowledged and understood. Laboratory Results WBC 12.19 10^3/uL (3.29-11.43) H 07/29/23 11:10 RBC 5.02 10^6/uL (3.85-5.65) 07/29/23 11:10 Hgb 12.60 g/dL (11.27-16.99) 07/29/23 11:10 Hct 41.1 % (36-47) 07/29/23 11:10 MCV 81.9 fl (85-98) L 07/29/23 11:10 MCH 25.1 pg (27-33) L 07/29/23 11:10 MCHC 30.7 g/dL (30-55) 07/29/23 11:10 RDW 15.8 % (12.1-15.1) H 07/29/23 11:10 Plt Count 292 10^3/cmm (157-399) 07/29/23 11:10 MPV 9.9 fL (7.4-10.4) 07/29/23 11:10 Neut % (Auto) 70.1 % 07/29/23 11:10 Lymph % (Auto) 21.2 % 07/29/23 11:10 Stanly % (Auto) 5.5 % 07/29/23 11:10 Eos % (Auto) 2.1 % 07/29/23 11:10 Baso % (Auto) 0.4 % 07/29/23 11:10 Neut # (Auto) 8.55 10^3/uL (1.8-7.7) H 07/29/23 11:10 Lymph # (Auto) 2.6 10^3/uL (0.8-4.8) 07/29/23 11:10 Stanly # (Auto) 0.7 10^3/uL (0.2-0.9) 07/29/23 11:10 Eos # (Auto) 0.3 10^3/uL (0.0-0.8) 07/29/23 11:10 Baso # (Auto) 0.1 10^3/uL (0.0-0.1) 07/29/23 11:10 Nucleated RBC % (auto) 0 % 07/29/23 11:10 Nucleated RBCs # 0.0 /100WBC 07/29/23 11:10 Sodium 140 mmol/L (136-145) 07/29/23 11:10 Potassium 3.6 mmol/L (3.5-5.1) 07/29/23 11:10 Chloride 106 mmol/L (98-107) 07/29/23 11:10 Carbon Dioxide 23 mmol/L (22-29) 07/29/23 11:10 Anion Gap 14.6 (5-19) 07/29/23 11:10 BUN 19 mg/dL (6-20) 07/29/23 11:10 Creatinine 0.6 mg/dL (0.5-0.9) 07/29/23 11:10 GFR Calculation 109.6 mL/min (90-130) 07/29/23 11:10 Glucose 125 mg/dL (65-115) H 07/29/23 11:10 Calculated Osmolality 294 mOsm/kg (285-295) 07/29/23 11:10 Calcium 9.2 mg/dL (8.5-10.5) 07/29/23 11:10 All radiology interpretation(s) finalized by discharge Discharge Plan Discharge Patient Disposition: Home Clinical Impression: Deep vein thrombosis of lower extremity Condition: Stable Prescriptions: New Tanvir DVT-PE Treat 30D Start 5 mg (74 tabs) tablets,dose pack See Rx Instructions .ROUTE .COMPLEX Qty: 74 0RF Rx Instructions: orally per package directions No Action acetaminophen [Tylenol] 325 mg capsule 325 mg PO DAILY PRN (Reason: Pain) Hold Instructions: Resume on 05/08/23. propranolol 40 mg tablet 40 mg PO BID 90 Days Qty: 180 1RF omeprazole 20 mg capsule,delayed release(DR/EC) 20 mg PO BID Qty: 180 1RF sumatriptan succinate 100 mg tablet See Rx Instructions PO .COMPLEX Qty: 10 5RF Rx Instructions: take 1 tab at onset of headache; if no relief, may repeat 1 tab after at least 2 hrs; max = 2 tabs/24 hrs PO aripiprazole 5 mg tablet 5 mg PO DAILY Qty: 30 11RF bupropion HCl [Wellbutrin XL] 150 mg tablet extended release 24 hr 150 mg PO QAM Qty: 30 11RF buspirone 10 mg tablet 10 mg PO BID Qty: 60 11RF sertraline 100 mg tablet 200 mg PO DAILY Qty: 60 11RF medroxyprogesterone [Depo-Provera] 150 mg/mL suspension 150 mg IM .Q 3 months celecoxib [Celebrex] 200 mg capsule 200 mg PO BID PRN (Reason: pain) Qty: 60 0RF Vitamin D3 125 mcg (5,000 unit) Tablet 125 mcg PO DAILY Discharge Orders: Discharge ED (Routine); Ordered 07/29/23 Ordered By: Romero Bowser Referrals: Nelida Wilkins FNP [Primary Care Provider] - Discharge Diet: Usual diet Discharge Activity: Increase activity as tolerated Patient Instructions: Deep Vein Thrombosis (ED), Opioid Safety, Pain Management Activity Restrictions/Additional Instructions: Thank you for choosing [facility] for your healthcare needs today. It is very important that you follow up as instructed or that you return to the Emergency Department should you have concerns or if your condition changes or worsens in any way. You were seen today for complaints of swelling in your leg ultrasound showed an extensive DVT in your right leg. You are given an injection of a anticoagulant and you should start the oral anticoagulant you are prescribed immediately. Follow-up with your doctor within the next week. You should continue taking the oral anticoagulant until your doctor specifically tells you to stop. It is very important that you follow-up with your doctor to get a refill of the Eliquis (oral anticoagulant you were prescribed today. Coding Level of Care Code ED Rn Intensive Care Unit for Ledy Chaudhari
[2023-07-29 11:31] LABS: Anion Gap 14.6 (5-19); Blood Urea Nitrogen 19 mg/dL (6-20); Calcium 9.2 mg/dL (8.5-10.5); Carbon Dioxide 23 mmol/L (22-29); Chloride 106 mmol/L (98-107); Glomerular Filtration Rate 109.6 mL/min (90-130); Glucose 125 mg/dL (65-115); Osmolality Calculated 294 mOsm/kg (285-295); Potassium 3.6 mmol/L (3.5-5.1); Sodium 140 mmol/L (136-145)
[2023-07-29] MEDS: enoxaparin 150 mg/mL Syringe SUBCUT (11:44)
[2023-07-29 11:58] VITALS: BP 130/65; PULSE 88; O2SAT 95
[2023-07-29 12:04] VITALS: BP 130/65; PULSE 88; O2SAT 95
== END 2023-07-29 12:08 | disposition home or self-care (01) ==
PROVIDERS: Emergency Provider Family Medicine; PCP Nurse Practitioner Family
DX: I82.401 Acute embolism and thrombosis of unspecified deep veins of right lower extremity (principal); Z77.22 Contact with and (suspected) exposure to environmental tobacco smoke (acute) (chronic); I10 Essential (primary) hypertension
CPT/HCPCS: 36415; 80048; 85025; 93971; 96372; 99284; J1650

== ENCOUNTER 2023-10-01 14:25 | Outpatient (CLI) | payer BC, MEDICAID, SELFPAY ==
--- NOTE | 2023-10-01 14:30 | MM_ITS ---
WS: [id number] BILATERAL 3D TOMOSYNTHESIS DIGITAL SCREENING MAMMOGRAM WITH CAD CLINICAL INFORMATION: SCREENING HISTORY: Screening mammogram. No current complaints. COMPARISON: 2022 TECHNIQUE: Bilateral CC and MLO views. FINDINGS: Fatty-replaced breasts bilaterally. No suspicious focal mass, asymmetry, calcifications, or java j2ee architect ural distortion. No evidence of malignancy. MM/[place] [id number] IMPRESSION: BI-RADS: 1-Negative FOLLOW UP: 1 Year Follow-up Recommend return to annual screening mammography.
== END 2023-10-01 14:26 | disposition home or self-care (01) ==
LOC: RAD 14:26
PROVIDERS: PCP Nurse Practitioner Family; Visit Provider Nurse Practitioner Family
DX: Z12.31 Encounter for screening mammogram for malignant neoplasm of breast (principal); R92.313 Mammographic fatty tissue density, bilateral breasts
CPT/HCPCS: 77063; 77067

== ENCOUNTER → 2023-10-17 08:23 | Outpatient (BNVA) | payer BC, MEDICAID, SELFPAY | PROVIDERS: PCP Nurse Practitioner Family; Visit Provider Internal Medicine | DX: E03.9 Hypothyroidism, unspecified (principal) | CPT/HCPCS: 84403; 84439; 84443 ==

== ENCOUNTER → 2023-10-18 09:35 | Outpatient (BNVA) | payer BC, MEDICAID, SELFPAY | PROVIDERS: PCP Nurse Practitioner Family; Visit Provider Family Medicine | DX: E03.9 Hypothyroidism, unspecified (principal) | CPT/HCPCS: 82530; 82570 ==

== ENCOUNTER 2024-01-28 11:24 | Outpatient (CLI) | payer BC, MEDICAID, SELFPAY ==
[2024-01-29 07:15] LABS: Dehydroepiandrosterone Sulfate 153 mcg/dL (15-205)
== END 2024-01-28 11:25 | disposition home or self-care (01) ==
LOC: LAB 11:26
PROVIDERS: PCP Nurse Practitioner Family; Visit Provider Internal Medicine
DX: L68.0 Hirsutism (principal); R68.89 Other general symptoms and signs; E28.2 Polycystic ovarian syndrome
CPT/HCPCS: 36415; 82627

== ENCOUNTER → 2024-03-25 13:26 | Outpatient (BNVA) | payer BC, SELFPAY | PROVIDERS: PCP Nurse Practitioner Family; Visit Provider Student in an Organized Health Care Education/Training Program | DX: M17.12 Unilateral primary osteoarthritis, left knee; E66.01 Morbid (severe) obesity due to excess calories; Z68.45 Body mass index [BMI] 70 or greater, adult | CPT/HCPCS: 73560; 73565 ==

== ENCOUNTER → 2024-07-16 14:49 | Outpatient (BNVA) | payer BC, SELFPAY | PROVIDERS: PCP Nurse Practitioner Family; Visit Provider Student in an Organized Health Care Education/Training Program | DX: M17.0 Bilateral primary osteoarthritis of knee (principal); M25.561 Pain in right knee; M25.562 Pain in left knee | CPT/HCPCS: 73560; 73565 ==

== ENCOUNTER → 2024-09-10 12:39 | Outpatient (BNVA) | payer BC, SELFPAY | PROVIDERS: PCP Nurse Practitioner Family; Visit Provider Internal Medicine | DX: L68.0 Hirsutism (principal); E28.2 Polycystic ovarian syndrome | CPT/HCPCS: 36415; 80048 ==

== ENCOUNTER 2024-10-12 13:36 | Emergency (ER) | payer BC, MEDICAID, SELFPAY ==
--- OUTSIDE RECORDS SUMMARY | 2024-10-08 01:00 | XMS_ITS ---
Author Organization [facility] [employer] Address [address] [place] [address] Care Team Providers Care Technicians And Trades Workers Name Role Phone Norma Crockett Primary Care Provider Unavail able RAMSES SAN Unavailable [phone] Nelida Wilkins Unavailable Unavailable REASON FOR VISIT Cysto RPG (check in time changed) @ MAIN OR Encounters Encounter Location Date Provider Diagnosis [facility] [address] [place] [facility] [place] [address] 10/08/2024 RAMSES SAN Plan Of Treatment Next Appt Details Provider Name:RAMSES HDZAngela Keisha, 11/06/2024 01:00:00 PM, [address] [place], [address], Progress Notes * Elise SHARP LDOB:06/1980 (43 yo F)Acc No.[id number]:10/08/2024 Patient: Elise ALEXANDER Provider: Andrew SAN MD :1980 A ge:43 Y S ex:Female Date:10/08/2024 Address:[address] [id number] Pcp:Jarod Carter * Billing Information: * Visit Code: * Procedure Codes: * Electronic signature of AUST IN MD MENA on 10/12/2024 at 01:41 PM CDT Sign off status: Pending * Provider: Andrew SAN MD Date: 0 10/08/2024 Generated for Cj martinez/Josh/Cristiane on: 0 10/12/2024 01:41 PM CDT
--- OUTSIDE RECORDS SUMMARY | 2024-10-08 03:56 | XMS_ITS ---
Author Organization [facility] [employer] Address [address] [place] [address] Care Team Providers Care Training And Development Manager Name Role Phone Norma Crockett Primary Care Provider Unavail able RAMSES SAN Unavailable [phone] Nelida Wilkins Unavailable Unavailable REASON FOR VISIT KUB/TANNER Order Encounters Encounter Location Date Provider Diagnosis [facility] [address] [place] [address] 10/08/2024 RAMSES SAN Right renal stone N20.0 and Gross hematuria R31.0 Assessments Encounter Date Diagnosis (ICD Code) Assessment Notes Treatment Notes Treatment Clinical Notes Section Notes 10/08/2024 Right renal stone (ICD-10 - N20.0) 10/08/2024 Gross hematuria (ICD-10 - R31.0) Plan Of Treatment Pending Test Test Name Order Date [id number] KUB, X-Ray: Abdomen, Kidney, Urete r, bladder 10/08/2024 Renal w/bladder--[id number] 10/08/2024 Next Appt Details Provider Name:RAMSES Lucie ANDREINAAngela Valdes, 11/06/2024 01:00:00 PM, [address] [place], [address], Progress Notes * Elise COSTELLO LDOB:06/1980 (43 yo F)Acc No.[id number]:10/08/2024 Patient: Christian HILDAElise ALEXANDER :1980 A ge:43 Y S ex:Female Address:[place] [address] Subjective: * Chief Complaints: * K UB/TANNER Order * Medical History: * Surgical History: * Hospitalization/Major Diagno stic Procedure: * Medications: Objective: * Vitals: * Physical Examination: Assessment: * Assessment: 1. R ight renal stone - N20.0 2 . G ross hematuria - R31.0 Plan: * Treatment: * ?Imaging: US Renal w/bladder--[id number]* Alejandrina Santos 10/08/2024 08:59:35 AM CDT >Please schedule prior to post op appointment on 11/06/24. Thank you. * 2.?Gross hematuria?Imagin KUB, X-Ray: Abdomen, Kidney, Ureter, bladder* Alejandrina Santos 10/08/2024 08:59:35 AM CDT >Please schedule prior to post op appointment on 11/06/24. Thank you. * ?Imaging: US Renal w/bladder--42593* Alejandrina Santos 10/08/2024 08:59:35 AM CDT >Please schedule prior to post op appointment on 11/06/24. Thank you. * * Procedure Codes: * true * Date: Generated for Cj martinez/Josh/eTpadminismitting on: 0 10/12/2024 01:41 PM CDT
--- OUTSIDE RECORDS SUMMARY | 2024-10-10 05:00 | XMS_ITS ---
Author Organization [facility] Address [address] [place] [address] Care Team Providers Care Pricing/Signage Team Member Name Role Phone Norma Crockett Primary Care Provider Unavail able RAMSES GREGORY Unavailable [phone] Nelida Wilkins Unavailable Unavailable RULA TIM Unavailable [phone] Allergies No Known Allergies REASON FOR VISIT ureteral stent check Medications Medication SIG (Take, Route, Frequency, Duration) Notes Start Date End Date Status Omeprazole 20 MG 1 capsule 1/2 to 1 h our before morning meal Orally twice a day Active Propranolol HCl 40 MG 1 tablet Orally Tw ice a day Active Sertraline HCl 100 MG 1 tablet Orally tw ice a day Active buPROPion HCl ER (XL) 150 MG 1 tablet in the morning Orally Once a day Active busPIRone HCl 10 MG 1 tablet Orally Twic e a day Active Zepbound 7.5 MG/0.5ML 0.5 mL Subcutaneous Active Celecoxib 200 MG 1 capsule Orally twice a day As needed Active Meloxicam 7.5 MG 1 tablet Orally Once a day prn Active Eliquis 5 MG as directed Orally t wice a day Active ARIPiprazole 5 MG 1 tablet Orally Once a day Active traZODone HCl 50 MG 1 tablet at bedtime as needed Orally Once a day Active Vitamin D3 Active DEPO-Medrol Active SUMAtriptan Succinate 50 MG 1 tablet as needed, may take second dose at least 2 hours after first dose up to 4 tablets per day as needed Orally Once a day prn Active Problems Problem Type SNOMED Code ICD Code Onset Dates Problem Status W/U Status Risk Notes Problem Ureteral stent present (Z96.0) Active confirmed Vital Signs Height 62 in 10/10/2024 Height-cm 157.48 cm 10/10/2024 Failed to obtain Encounters Encounter Location Date Provider Diagnosis [facility] [place] [address] [place] [address] 10/10/2024 RULA TIM Ureteral stent present Z96.0 Assessments Encounter Date Diagnosis (ICD Code) Assessment Notes Treatment Notes Treatment Clinical Notes Section Notes 10/10/2024 Ureteral stent present (ICD-10 - Z96.0) Pt here with complaints that her ureteral stent is causing some severe discomfort. Per Dr. Gregory, go ahead and assess making sure ureteral stent is not dislodge. I placed pt in stirups and the ureteral stent was visible, this was removed. Pt instructed to call with any concerns. Plan Of Treatment Next Appt Details Follow Up: post operatively, Reason: Provider Name:RAMSES Valdes, 11/06/2024 01:00:00 PM, [address] [place], [address], Progress Notes * WONElise ALEXANDER LDOB:06/1980 (43 yo F)Acc No.[id number]:10/10/2024 Progress Note Patient: Elise ALEXANDER Provider: TONJA Jesus :1980 A ge:43 Y S ex:Female Date:10/10/2024 Address:[address] [place], [place] [id number] Pcp:Norma Mendiola, OPERATIONS SUPPORT MANAGER-c Subjective: * Chief Complaints: * 1 . Ureteral stent check. * Medical History: A nxiety, Depression, Gross hematuria, Urge incontinence, Overactive bladder, Urinary frequency, Urinary urgency. * Medications: T aking DEPO-Medrol , Taking SUMAtriptan Succinate 50 MG Tablet 1 tablet as needed, may take second dose at least 2 hours after first dose up to 4 tablets per day as needed Orally Once a day , Notes to Pharmacist: prn, Taking traZODone HCl 50 MG Tablet 1 tablet at bedtime as needed Orally Once a day , Taking Meloxicam 7.5 MG Tablet 1 tablet Orally Once a day , Notes to Pharmacist: prn, Taking Zepbound 7.5 MG/0.5ML Solution Auto-injector 0.5 mL Subcutaneous , Taking Celecoxib 200 MG Capsule 1 capsule Orally twice a day As needed, Taking Eliquis 5 MG Tablet as directed Orally twice a day , Taking ARIPiprazole 5 MG Tablet 1 tablet Orally Once a day , Taking Omeprazole 20 MG Capsule Delayed Release 1 capsule 1/2 to 1 hour before morning meal Orally twice a day , Taking buPROPion HCl ER (XL) 150 MG Tablet Extended Release 24 Hour 1 tablet in the morning Orally Once a day , Taking busPIRone HCl 10 MG Tablet 1 tablet Orally Twice a day , Taking Propranolol HCl 40 MG Tablet 1 tablet Orally Twice a day , Taking Sertraline HCl 100 MG Tablet 1 tablet Orally twice a day , Taking Vitamin D3 , Medication List reviewed and reconciled with the patient * Allergies: N .K.D.A. Objective: * Vitals: H t: 62 in, Ht-cm: 157.48 cm. Failed to obtain. Assessment: * Assessment: 1. U reteral stent present - Z96.0 (Primary) Pt here with complaints that her ureteral stent is causing some severe discomfort. Per Dr. Gregory, go ahead and assess making sure ureteral stent is not dislodge. I placed pt in stirups and the ureteral stent was visible, this was removed. Pt instructed to call with any concerns. Plan: * Treatment: * Procedures: U reteral stent removed intact without complications. * Follow Up: p ost operatively * Billing Information: * Visit Code: 98973 Office Visit, Est Pt., Level 1. * Procedure Codes: * Electronic signature of RULA TIM APRN on 10/12/2024 at 01:41 PM CDT Sign off status: Pending * Provider: Andrew Tim APRN-BOOK MENDER Date: 10/10/2024 Generated for Cj martinez/Josh/Cristiane on: 10/12/2024 01:41 PM CDT
--- OUTSIDE RECORDS SUMMARY | 2024-10-12 13:41 | XMS_ITS | Patient Health Record ---
Author Organization [facility] Address [address] [place] [address] Care Team Providers Care Weather Analyst Name Role Phone Divina Fraga Primary Care Provider [phone] Reason For Referral No Information Medications Medication SIG (Take, Route, Frequency, Duration) Notes Start Date End Date Status venlafaxine 75 MG Oral Tablet venlafaxine 75 MG Oral Tablet 10/11/2018 Active Metoclopramide 10 MG Oral Tablet Metoclopramide 10 MG Oral Tablet 10/11/2018 Active aripiprazole 2 MG Oral Tablet aripiprazole 2 MG Oral Tablet 10/11/2018 Active Omeprazole 20 MG Enteric Coated Tablet Omeprazole 20 MG Enteric Coated Tablet 10/11/2018 Active Ergocalciferol 76112 UNT Oral Capsule Ergocalciferol 37955 UNT Oral Capsule 10/11/2018 Active Osteo Bi-Flex Osteo Bi-Flex 10/11/2018 Active Immunizations Vaccine Route Administration Date Status Comme nts Influenza (whole), CPT 03757 Inactive Unknown 10/11/2018 Administered Social History Social History Additional Details Category Social Info Options Details zzMigrated Social History Migrated Social History Smoking Status:Never smoked tobacco (finding) Plan Of Treatment No Information
--- OUTSIDE RECORDS SUMMARY | 2024-10-12 13:41 | XMS_ITS | Patient Health Record ---
Author Organization [facility] Address [address] [place] [address] Care Team Providers Care Building Principal Name Role Phone Norma Crockett Primary Care Provider Unavail able RAMSES GREGORY Unavailable [phone] Nelida Wilkins Unavailable Unavailable GILDARDO DANIELLE Unavailable [phone] RULA CORONADO Unavailable [phone] Allergies No Known Allergies Results Component Value Reference Range Notes CULTURE, URINE, ROUTINE (395 ) Reviewed date:10/01/2024 08:11:53 AM Interpretation: Performing Lab:[facility], [id number] [id number] Eduardo Camp MD Notes/Report: NON-FASTING CULTURE, URINE, ROUTINE SEE NOTE CULTURE, URINE, ROUTINE Micro Number: [id number] Test Status: Final Specimen Source: Urine, clean catch Specimen Quality: Adequate Result: Mixed genital doug isolated. These superficial bacteria are not indicative of a urinary tract infection. No further organism identification is warranted on this specimen. If clinically indicated, recollect clean-catch, mid-stream urine and transfer immediately to Urine Culture Transport Tube. Comment: No collection date was provided. The specimen is generally defined as stable up to 48 hours. The result(s) need(s) to be interpreted cautiously. Clinicopathologic correlation is required. Repeat testing is recommended as clinically indicated. Customer Service is available with questions or comments based on your area of interest: [employer] ([phone]) NO COLLECTION DATE RECEIVED. WE HAVE USED THE DATE THE SPECIMEN WAS RECEIVED BY THIS LABORATORY THE COLLECTION DATE. IF THIS IS INCORRECT, PLEASE CONTACT CLIENT SERVICES. PHONE NUMBER: [phone] Stone Analysis (Calculi) (No t yet reviewed by provider) Interpretation: Performing Lab: Notes/Report: Calculi Mass 12 Calculi Description See Note Specimen consists of one brown and potts calculus. The total weight is 12 mg. Calculi Composition See Note Calculi composed primarily of: 90% calcium oxalate monohydrate, and 10% calcium oxalate dihydrate. INTERPRETIVE INFORMATION: Calculi (Stone) analysis Calculi are the products of physiological processes that yield crystalline compounds in a matrix of biological compounds and blood. Matrix components are not reported. The clinically significant crystalline components identified in calculi specimens are reported. Gross description may not be consistent with composition determined by FTIR analysis. Performed By: [facility] [address] [place], [place] [id number] [employer] Cle[employer] Machine Tender: Herber Lujan MD, PhD CLIA Number: [id number] Testing performed at: [address] [address] CLIA ID [id number] Chest PA/Lat--60095 Reviewed date:09/29/2024 03:25:24 PM Interpretation: Performing Lab: Notes/Report: See Below For Report Chest PA/Lat Read See Below For Report CBC w/ Auto Diff Reviewed date:10/01/2024 01:22:59 PM Interpretation: Performing Lab: Notes/Report: Testing performed at: [address] [address] CLIA ID [id number] WBC 11.8 4.5-11.0 X10'3 RBC 4.95 4.00-5.20 X10'6 Hgb 13.6 12.0-16.0 G/DL Hct 43.5 36.0-46.0 % MCV 87.9 80.0-100.0 FL MCH 27.5 27.0-31.0 PG MCHC 31.3 31.0-37.0 G/DL Platelet 272 150-400 X10'3 RDW-SD 51.4 35.0-49.0 FL RDW-CV 15.9 12.2-15.6 % MPV 10.9 9.2-12.0 FL Neutro Auto% 71.7 40.0-70.0 % Lymph Auto% 20.6 22.0-44.0 % [place] Auto% 6.2 3.0-7.0 % Eos Auto% .6 2.0-4.0 % Baso Auto% 0.3 0.0-1.0 % Imm Gran% .6 .0-.4 % Neutro Abs 8.44 .80-7.70 Absolute Neutrophil Count 8440 Lymph Abs 2.43 .10-4.10 [place] Abs .73 .20-1.00 Eos Abs .07 .00-.40 Baso Abs .04 .00-.20 Imm Gran Abs .07 .00-.10 NRBC# .00 .00-.20 X10'3 NRBC% .00 .00-.20 /100 int act WBC's Basic Metabolic Panel Reviewed date:10/01/2024 01:22:59 PM Interpretation: Performing Lab: Notes/Report: Testing performed at [facility], [address] [place] [address] [place] [address]. CLIA ID#: [id number] M-mkfhgj-x-benzoquinone imine (NAPQI) is a metabolite of acetaminophen, NAPQI concentrations of apparoximately 10 mg/L correlation to toxic levels of acetaminophen demonstrates a greater than or equil to 10% change in results. NAPQI concentrations greater than this may lead to falsely depressed results for patient samples. Calculation performed from GFR calculator provided by the [employer]. Glomerular Filtration rate(GRF) is the best overall index of kidney function. Normal GFR varies according to age,sex, body size, and declines with age. The National Kid[employer] recommends using the CKD-EPI Creatinine Equation(2020) to estimate GFR. Testing performed at: [address] [place] [address] CLIA ID [id number] Use of this assay is not recommended for patients undergoing treatment with phenindione, due to the potential for falsely depressed results. Sodium 142 136-145 MMOL/L Potassium 3.9 3.5-5.1 MMOL/L Chloride 105 98-107 MMOL/L CO2 24.2 20.0-31.0 MMOL/L Glucose Serum 74 71-110 MG/DL BUN 19 7-21 MG/DL Creat .78 .51-1.17 MG/DL GFR 95.7 Anion Gap 17 5-15 BUN/Creat Ratio 24.4 12.0-20.0 % Calcium 9.4 8.7-10.4 MG/DL Osmo Serum,Calculated 295 280-300 MOSM/KG Urinalysis, Routine Reviewed date:09/29/2024 10:23:12 AM Interpretation: Performing Lab: Notes/Report: Urine-Color dark yellow Appearance cloudy Glucose - Bilirubin 1+ Ketones - Specific [place] 1.030 Occult Blood 3+ pH 6.0 Urine Protein trace Urobilinogen,Semi-Qn - Nitrite, Urine - WBC Esterase - Urinalysis, Routine Reviewed date:06/16/2024 09:34:55 AM Interpretation: Performing Lab: Notes/Report: Urine-Color yellow Appearance clear Glucose - Bilirubin - Ketones - Specific [place] 1.030 Occult Blood - pH 6.0 Urine Protein - Urobilinogen,Semi-Qn - Nitrite, Urine - WBC Esterase trace Urinalysis, Routine Reviewed date:07/14/2024 02:20:56 PM Interpretation: Performing Lab: Notes/Report: Urine-Color yellow Appearance clear Glucose - Bilirubin - Ketones - Specific [place] 1.010 Occult Blood - pH 6.0 Urine Protein - Urobilinogen,Semi-Qn - Nitrite, Urine - WBC Esterase - zzzRetrograde Urography Reviewed date:10/09/2024 12:44:57 PM Interpretation: Performing Lab: Notes/Report: See Below For Report Retrograde Urography Read See Below For Report CT Abdomen, Pelvis w/ + w/o Contrast--[id number] Reviewed date:07/14/2024 04:52:59 PM Interpretation: Performing Lab: Notes/Report: See Below For Report CT Abdomen, Pelvis w/ + w/o Contrast Read See Below For Report Reason For Referral No Information Medications Medication SIG (Take, Route, Frequency, Duration) Notes Start Date End Date Status ARIPiprazole 5 MG 1 tablet Orally Once a day Active Omeprazole 20 MG 1 capsule 1/2 to 1 h our before morning meal Orally twice a day Active DEPO-Medrol Active Propranolol HCl 40 MG 1 tablet Orally Tw ice a day Active SUMAtriptan Succinate 50 MG 1 tablet as needed, may take second dose at least 2 hours after first dose up to 4 tablets per day as needed Orally Once a day prn Active Sertraline HCl 100 MG 1 tablet Orally tw ice a day Active buPROPion HCl ER (XL) 150 MG 1 tablet in the morning Orally Once a day Active busPIRone HCl 10 MG 1 tablet Orally Twic e a day Active Zepbound 7.5 MG/0.5ML 0.5 mL Subcutaneous Active Celecoxib 200 MG 1 capsule Orally twice a day As needed Active traZODone HCl 50 MG 1 tablet at bedtime as needed Orally Once a day Active Vitamin D3 Active Meloxicam 7.5 MG 1 tablet Orally Once a day prn Active Eliquis 5 MG as directed Orally t wice a day Active Social History Tobacco Use: Social History Observation Description Date Details (start date - stop date) Never Smoker NA - NA Tobacco Control (Standard) Question Answer Notes Tobacco use: Nonsmoker AUDIT-C (Standard) Question Answer Notes Did you have a drink containing alcohol in the p ast year? No Points 0 Interpretation Negative Problems Problem Type SNOMED Code ICD Code Onset Dates Problem Status W/U Status Risk Notes Problem Urge incontinence of urine (98120104) Urge incontinence (N39.41) Active confirmed Problem Gross hematuria (608893392) Gross hematuria (R31.0) Active confirmed Problem Use of anticoagulation (977642368) Chronic anticoagulation (Z79.01) Active confirmed Problem Ureteral stent present (Z96.0) Active confirmed Problem Kidney stone (18215417) Right renal stone (N20.0) Active confirmed Problem Morbid obesity (241361489) Morbid obesity (E66.01) Active confirmed Vital Signs Heart Rate 99 /min 09/29/2024 Blood pressure diastolic 88 mm Hg 09/29/2024 Height-cm 157.48 cm 10/10/2024 Failed to obtai n Weight-kg 167.83 kg 09/29/2024 Height 62 in 10/10/2024 Failed to obtai n Blood pressure systolic 142 mm Hg 09/29/2024 Weight 370 lbs 09/29/2024 BMI 67.67 kg/m2 09/29/2024 Procedures Procedure Date Ordered Date Performed Result Body Sit e Bladder Scan 06/16/2024 06/16/2024 57ml Encounters Encounter Location Date Provider Diagnosis [facility] [address] [place] [address] 10/08/2024 RAMSES GREGORY [facility] [address] [place] [address] 10/10/2024 RULA CORONADO Ureteral stent prese nt Z96.0 [facility], [facility] [address] [place] [address] 06/16/2024 GILDARDO DANIELLE Gross hematuria R31. 0 and Urge incontinence N39.41 [facility] [address] [place] [address] 07/14/2024 RAMSES GREGORY Urge incontinence N3 9.41 ; Gross hematuria R31.0 and Right renal stone N20.0 [facility], [facility] [address] [place] [address] 09/29/2024 RULA CORONADO Gross hematuria R31. 0 ; Preoperative examination Z01.818 ; Urge incontinence N39.41 ; Right renal stone N20.0 ; Morbid obesity E66.01 ; Chronic anticoagulation Z79.01 and History of DVT (deep vein thrombosis) Z86.718 [facility], [facility] [address] [place] [address] 06/05/2024 RAMSES GREGORY [facility], [facility] [address] [place] [address] 06/16/2024 GILDARDO DANIELLE [facility], [facility] [address] [place] [address] 09/23/2024 RAMSES GREGORY [facility], [facility] [address] [place] [address], [place] [address] 09/29/2024 RAMSES GREGORY [facility], [facility] [address] [place] [address], [place] [address] 10/08/2024 RAMSES GREGORY Right renal stone N2 0.0 and Gross hematuria R31.0 Assessments Encounter Date Diagnosis (ICD Code) Assessment Notes Treatment Notes Treatment Clinical Notes Section Notes 10/08/2024 Right renal stone (ICD-10 - N20.0) 10/10/2024 Ureteral stent present (ICD-10 - Z96.0) Pt here with complaints that her ureteral stent is causing some severe discomfort. Per Dr. Gregory, go ahead and assess making sure ureteral stent is not dislodge. I placed pt in stirups and the ureteral stent was visible, this was removed. Pt instructed to call with any concerns. 09/29/2024 Gross hematuria (ICD-10 - R31.0) 09/29/2024 Preoperative examination (ICD-10 - Z01.818) 07/14/2024 Urge incontinence (ICD-10 - N39.41) 43 yo female morbidly obese with h/o DVT on Eliquis. She is having gross hematuria. CT shows a tiny right renal stone. Attempted cysto today in office but was unable to locater her urethral meatus with multiple attempts. I recommend cystoscopy with bilateral retrograde pyelograms in the OR to complete her hematuria workup. How procedure is performed was reviewed along with risks, benefits, alternatives, and postprocedural expectations. All questions were sought and answered to pt satisfaction and pt is agreeable to proceed. Will schedule next available. Plan: schedule cystoscopy with bilateral RPGs at main OR due to BMI 70 all questions answered. 06/16/2024 Urge incontinence (ICD-10 - N39.41) Pt with urine leakage after urge to void. Denies any frequency. No prior treatment. Will discuss further treatment after completing hematuria work up. 06/16/2024 Gross hematuria (ICD-10 - R31.0) We discussed the indications and rationale for a hematuria workup including the possibility of malignancy causing hematuria. In terms of the workup specifically, we discussed the need for evaluation of the upper urinary tracts with radiologic imaging and the lower urinary tract with cystoscopy. We will set up the CT scan w/ and w/o contrast and delayed imaging per hematuria protocol. We will also schedule for next available cystoscopy. 10/08/2024 Gross hematuria (ICD-10 - R31.0) 07/14/2024 Gross hematuria (ICD-10 - R31.0) 43 yo female morbidly obese with h/o DVT on Eliquis. She is having gross hematuria. CT shows a tiny right renal stone. Attempted cysto today in office but was unable to locater her urethral meatus with multiple attempts. I recommend cystoscopy with bilateral retrograde pyelograms in the OR to complete her hematuria workup. How procedure is performed was reviewed along with risks, benefits, alternatives, and postprocedural expectations. All questions were sought and answered to pt satisfaction and pt is agreeable to proceed. Will schedule next available. Plan: schedule cystoscopy with bilateral RPGs at main OR due to BMI 70 all questions answered. 07/14/2024 Right renal stone (ICD-10 - N20.0) 43 yo female morbidly obese with h/o DVT on Eliquis. She is having gross hematuria. CT shows a tiny right renal stone. Attempted cysto today in office but was unable to locater her urethral meatus with multiple attempts. I recommend cystoscopy with bilateral retrograde pyelograms in the OR to complete her hematuria workup. How procedure is performed was reviewed along with risks, benefits, alternatives, and postprocedural expectations. All questions were sought and answered to pt satisfaction and pt is agreeable to proceed. Will schedule next available. Plan: schedule cystoscopy with bilateral RPGs at [facility] OR due to BMI 70 all questions answered. 09/29/2024 Urge incontinence (ICD-10 - N39.41) 09/29/2024 Right renal stone (ICD-10 - N20.0) 09/29/2024 Morbid obesity (ICD-10 - E66.01) 09/29/2024 Chronic anticoagulation (ICD-10 - Z79.01) 09/29/2024 History of DVT (deep vein thrombosis) (ICD-10 - Z86.718) 09/29/2024 Other Patient schedul ed for cystoscopy with bilateral retrograde pyelograms at [facility] with Dr. Gregory on 10/08/24. How the procedure was performed was discussed along with risks/benefits/al ternatives and postprocedural expectations. Patient takes Eliquis, understands to hold x 3 days prior to surgery. She also takes Zepbound, instructed to hold x 7 days prior to procedure. Denies problems with anesthesia in the past, no new medications or diagnoses since last visit. Patient has presurgical testing at [facility] today. Urine sent for culture and we will treat as indicated preoperatively. All questions that were asked were answered and elects to proceed with procedure as scheduled. Patient will RTC postoperatively and is satisfied with plan of care. Plan Of Treatment Pending Test Test Name Order Date KUB, X-Ray: Abdomen, Kidney, Urete r, bladder 10/08/2024 CT Abd & Pelvis W & [place] contrast [id number] 06/16/2024 Blood Urea Nitrogen (BUN) 06/16/2024 Creatinine Serum 06/16/2024 US Renal w/bladder--[id number] 10/08/2024 Stone Analysis (Calculi) 10/08/2024 Next Appt Details Provider Name:RAMSES Valdes, 11/06/2024 01:00:00 PM, [address] [place], [address], Insurance Providers Payer Name Payer Address Payer Phone Subscriber Number Group Number Insured Name Patient Relationship to Insured Coverage Start Date Coverage End Date [facility] [address] [address] [place], [place] [id number] Elise Costello Self - patient is the insured Medical (General) History Medical History History ICD Code anxiety depression gross hematuria urge incontinence overactive bladder urinary frequency urinary urgency Surgical History Surgery Date(Month/Year) C-Sections x 2 Appendectomy Cholecystecomy Hospitalization History Reason Date(Month/Year) see prior sx hx
[2024-10-12 13:47] VITALS: BP 160/95; PULSE 95; RESP 20; TEMP 36.4; O2SAT 97
[2024-10-12 14:03] LABS: Glucose Urine UA Negative (Normal); Nitrate Urine Negative (Negative); Specific Gravity, Urine 1.021 (1.005-1.030)
[2024-10-12 14:07] LABS: Hematocrit 41.7 % (36-47); Hemoglobin 13.40 g/dL (11.27-16.99); Mean Corpuscular HGB Conc 32.1 g/dL (30-55); Mean Corpuscular Hemoglobin 27.8 pg (27-33); Mean Corpuscular Volume 86.5 fl (85-98); Nucleated Red Blood Cells % 0 %; Platelet Count 267 10^3/cmm (157-399); Red Blood Count 4.82 10^6/uL (3.85-5.65); White Blood Count 12.13 10^3/uL (3.29-11.43)
[2024-10-12 14:13] LABS: Add Urine Microscopic? YES; UA Manual Slide Review YES
[2024-10-12 14:27] LABS: Alanine Aminotransferase 21 U/L (0-33); Albumin Level 3.8 g/dL (3.5-5.2); Alkaline Phosphatase 83 U/L (35-105); Anion Gap 18.6 (5-19); Aspartate Amino Transferase 15 U/L (0-32); Blood Urea Nitrogen 13 mg/dL (6-20); Calcium 9.2 mg/dL (8.5-10.5); Carbon Dioxide 19 mmol/L (22-29); Chloride 104 mmol/L (98-107); Creatinine Clr Calc Pharmacy 139.1224; Globulin 3.0 g/dL (1.3-4.6); Glucose 93 mg/dL (65-115); Osmolality Calculated 286 mOsm/kg (285-295); Potassium 3.6 mmol/L (3.5-5.1); Sodium 138 mmol/L (136-145); Total Protein 6.8 g/dL (6.6-8.7)
--- NOTE | 2024-10-12 14:33 | W.ED.FEMALGU ---
HPI - Female Genitourinary General: Chief complaint: Urogenital-Female Stated complaint: cramping in the lower back Time Seen by Provider: 10/12/24 13:52 Source: patient Mode of arrival: ambulatory Limitations: no limitations History of Present Illness: Patient is a 43-year-old female who presents the emergency department complaining of lower back cramping. On Sunday she had urethral stent placed for obstructive uropathy, however states it dislodged and she subsequently followed up for removal of it. She states that she has continued to have some mild bleeding, cramping, and lower abdominal and back pain. States she has mild sensation of delayed bladder emptying, but has still been able to make urine. No fever, nausea or vomiting, or any other symptoms of systemic illness. Patient had the procedure with Dr. Gregory in [place]. Associated symptoms: Reports abdominal pain; Deny headache(s) or nausea Related Data Home Medications ?Medication ?Instructions ?Recorded ?Confirmed acetaminophen 325 mg capsule 325 mg PO DAILY PRN Pain 07/15/21 09/09/24 (Tylenol) Held on 05/03/23. Instructions: Resume on 05/08/23. medroxyprogesterone 150 mg/mL 150 mg IM .Q 3 months 04/24/22 09/09/24 intramuscular suspension (Depo-Provera) cholecalciferol (vitamin D3) 125 125 mcg PO DAILY 05/03/23 09/09/24 mcg (5,000 unit) tablet (Vitamin D3) apixaban 5 mg tablet (Eliquis) 5 mg PO BID 11/05/23 09/09/24 Previous Rx's ?Medication ?Instructions ?Recorded omeprazole 20 mg capsule,delayed 20 mg PO BID #180 caps 05/25/21 release propranolol 40 mg tablet 40 mg PO BID 90 days #180 tabs 05/25/21 sumatriptan succinate 100 mg tablet See Rx Instructions PO .COMPLEX 05/25/21 #10 tabs aripiprazole 5 mg tablet 5 mg PO DAILY #30 tabs 03/31/24 bupropion HCl 150 mg 24 hr tablet, 150 mg PO QAM #30 tabs 03/31/24 extended release (Wellbutrin XL) buspirone 10 mg tablet 10 mg PO BID #60 tabs 03/31/24 sertraline 100 mg tablet 200 mg (2 x 100 mg) PO DAILY #60 02/03/25 tabs meloxicam 7.5 mg tablet 7.5 mg PO DAILY #30 tabs 08/11/24 trazodone 50 mg tablet 100 mg (2 x 50 mg) PO .HS PRN 09/03/24 insomnia #60 tabs amoxicillin 875 mg-potassium 1 tab PO BID 14 days #28 tabs 10/12/24 clavulanate 125 mg tablet Allergies Allergy/AdvReac Type Severity Reaction Status Date / Time No Known Allergies Allergy Verified 09/09/24 08:01 Review of Systems General: Reports: 10 or more systems reviewed and unremarkable except in HPI and below Const: Denies: fever(s), chills, change in appetite, change in weight or diaphoresis ENMT: Denies: throat pain or hoarseness Card: Denies: chest pain, palpitations or lightheadedness Resp: Denies: dyspnea, productive cough or wheezing GI: Reports: abdominal pain and GI cramping; Denies: nausea, vomiting, diarrhea, constipation, bloating, change in stool character or hematochezia : Reports: hematuria; Denies: flank pain, difficulty voiding, dysuria, urinary frequency or urinary urgency Musc: Reports: back pain; Denies: neck pain Skin/Breast: Denies: rash or new lesions Neuro: Denies: headache(s) or dizziness PFSH ED PFSH: Medical History (Updated 10/12/24 @ 14:53 by ALVARO Cruz) Osteoarthritis of knees, bilateral Psychiatric care GERD (gastroesophageal reflux disease) Hypertension Migraines Obesity, morbid (more than 100 lbs over ideal weight or BMI > 40) Surgical History Hx laparoscopic cholecystectomy 05/03/23 Dr. olvera History of appendectomy 08/31/2016 History of delivery x2 Family History Grandfather Diabetes maternal Grandmother Diabetes paternal Cervical cancer maternal Father Hypertension Family/Other Heart disease paternal uncle Eye problem paternal and maternal uncle Other Cancer Migraines Social History Smoking and tobacco/nicotine status: never used tobacco/nicotine Second hand smoke exposure: Yes (Sometimes.) Alcohol intake: current Alcohol intake frequency: holidays/special occasions only Alcohol type: other Substance/Drug Use: never Lives independently: Yes Household members: family service: No Current occupational status: employed Current occupation: [employer] Current occupational exposures/hazards: No Do you think of yourself as: Straight/Heterosexual Current gender identity: Female Special marlene needs: No Agree to transfusion: Yes Physical Exam Const: COMMON NORMALS: no acute distress, patient oriented x3, alert and well nourished GENERAL APPEARANCE: cooperative and comfortable NUTRITIONAL APPEARANCE: obese morbidly obese ORIENTATION/CONSCIOUSNESS: Yes awake Neck/C-Spine: COMMON NORMALS: full ROM, supple, no meningeal signs and no JVD Resp: COMMON NORMALS: normal respiratory effort, No retractions, No use of accessory muscles and clear to auscultation bilaterally AUSCULTATION: clear to auscultation bilaterally, no crackles, no rales, no rhonchi and no wheezes Cardio: COMMON NORMALS: no JVD, regular rate, regular rhythm, No gallops present (Cardio), No clicks present (Cardio), No murmurs present (Cardio), No rub (Cardio) and Peripheral pulses 2+ throughout RATE: regular rate RHYTHM: regular rhythm PERIPHERAL PULSES: Peripheral pulses 2+ throughout GI: COMMON NORMALS: Normal to inspection, nondistended, normoactive bowel sounds present, Soft to palpation, non-tender, No hepatosplenomegaly present and no masses INSPECTION: Yes central obesity AUSCULTATION: Yes normoactive bowel sounds PALPATION: Yes Soft to palpation, No Guarding due to palpation present (GI), No Rigid due to palpation and Yes No hepatosplenomegaly present RECTAL EXAM: deferred : COMMON NORMALS: Yes no CVA tenderness BLADDER/KIDNEY EXAM: Yes no CVA tenderness Back/Pelvis: COMMON NORMALS: no CVA tenderness Extremity: COMMON NORMALS: normal to inspection and full ROM Neuro: COMMON NORMALS: patient oriented x3, moves all extremities, no focal motor deficits and no sensory deficits noted SENSORIUM/ORIENTATION: Yes alert MENINGEAL SIGNS: Yes no meningeal signs Psych: COMMON NORMALS: mental status grossly normal, cooperative and speech normal SPEECH: Yes normal speech Skin: COMMON NORMALS: no rashes or lesions noted GENERAL SKIN EXAM: no rashes or lesions noted Course Vital Signs: Vital signs: Vital Signs Temperature 97.6 F 10/12/24 13:47 Pulse Rate 95 10/12/24 13:47 Respiratory Rate 20 H 10/12/24 13:47 Blood Pressure 160/95 10/12/24 13:47 Pulse Oximetry 97 10/12/24 13:47 Oxygen Delivery Me thod Room Air 10/12/24 13:47 MDM - Female Medical Decision Making Patient presenting for continued low back pain and lower abdominal pain, hematuria and cramping status post 2 urinary procedures. She had cystoscopy to place ureteral stent for obstructive uropathy, and subsequently had removed due to it being dislodged. Nontoxic-appearing on exam, morbidly obese female with normal vitals. Has not been running fevers or has been sick otherwise. Her urine is dark tented, and too numerous blood cells to count, however still has infectious parameters still present despite being on Bactrim. A postvoid residual ultrasound revealing only 13 mL in the bladder, and I am not convinced at this time that there is any further obstructive uropathy as she has still been making urine okay with normal kidney function by labs. Only minimal elevation in white count, I have suspicion that the Bactrim has not been covering this complicated UTI and we will switch her to 14 days of Augmentin as I feel that Cipro is contraindicated with her BMI to avoid tendinopathy. With no fevers, nausea or vomiting, concerning signs for sepsis, acute urinary retention, or other signs of illness I feel that this is stable for discharge home with a prompt follow-up with urology next week. Patient agrees and states that she will follow-up in the meantime will return if her condition worsens. She is given a gram of Rocephin through IV here in the ED as well as fluids and Toradol. Lab Data 10/12/24 14:02 10/12/24 14:02 Laboratory Results WBC 12.13 10^3/uL (3.29-11.43) H 10/12/24 14:02 RBC 4.82 10^6/uL (3.85-5.65) 10/12/24 14:02 Hgb 13.40 g/dL (11.27-16.99) 10/12/24 14:02 Hct 41.7 % (36-47) 10/12/24 14:02 MCV 86.5 fl (85-98) 10/12/24 14:02 MCH 27.8 pg (27-33) 10/12/24 14:02 MCHC 32.1 g/dL (30-55) 10/12/24 14:02 RDW 15.1 % (12.1-15.1) 10/12/24 14:02 Plt Count 267 10^3/cmm (157-399) 10/12/24 14:02 MPV 9.8 fL (7.4-10.4) 10/12/24 14:02 Neut % (Auto) 74.4 % 10/12/24 14:02 Lymph % (Auto) 18.1 % 10/12/24 14:02 Cotton % (Auto) 5.7 % 10/12/24 14:02 Eos % (Auto) 0.4 % 10/12/24 14:02 Baso % (Auto) 0.4 % 10/12/24 14:02 Neut # (Auto) 9.02 10^3/uL (1.8-7.7) H 10/12/24 14:02 Lymph # (Auto) 2.2 10^3/uL (0.8-4.8) 10/12/24 14:02 Cotton # (Auto) 0.7 10^3/uL (0.2-0.9) 10/12/24 14:02 Eos # (Auto) 0.1 10^3/uL (0.0-0.8) 10/12/24 14:02 Baso # (Auto) 0.1 10^3/uL (0.0-0.1) 10/12/24 14:02 Nucleated RBC % (auto) 0 % 10/12/24 14:02 Nucleated RBCs # 0.0 /100WBC 10/12/24 14:02 Sodium 138 mmol/L (136-145) 10/12/24 14:02 Potassium 3.6 mmol/L (3.5-5.1) 10/12/24 14:02 Chloride 104 mmol/L (98-107) 10/12/24 14:02 Carbon Dioxide 19 mmol/L (22-29) L 10/12/24 14:02 Anion Gap 18.6 (5-19) 10/12/24 14:02 BUN 13 mg/dL (6-20) 10/12/24 14:02 Creatinine 0.8 mg/dL (0.5-0.9) 10/12/24 14:02 GFR Calculation 78.3 mL/min (90-130) L 10/12/24 14:02 Glucose 93 mg/dL (65-115) 10/12/24 14:02 Calculated Osmolality 286 mOsm/kg (285-295) 10/12/24 14:02 Calcium 9.2 mg/dL (8.5-10.5) 10/12/24 14:02 Total Bilirubin 0.3 mg/dL (0.15-1.2) 10/12/24 14:02 AST 15 U/L (0-32) 10/12/24 14:02 ALT 21 U/L (0-33) 10/12/24 14:02 Alkaline Phosphatase 83 U/L (35-105) 10/12/24 14:02 Total Protein 6.8 g/dL (6.6-8.7) 10/12/24 14:02 Albumin 3.8 g/dL (3.5-5.2) 10/12/24 14:02 Globulin 3.0 g/dL (1.3-4.6) 10/12/24 14:02 Urine Color Red (Yellow) A 10/12/24 13:57 Urine Appearance Turbid (CLEAR) A 10/12/24 13:57 Urine pH 5.5 (5-7) 10/12/24 13:57 Ur Specific [place] 1.021 (1.005-1.030) 10/12/24 13:57 Urine Protein 2+ (Negative) A 10/12/24 13:57 Urine Glucose (UA) Negative (Normal) 10/12/24 13:57 Urine Ketones Trace (Negative) 10/12/24 13:57 Urine Blood 3+ (Negative) A 10/12/24 13:57 Urine Nitrate Negative (Negative) 10/12/24 13:57 Urine Bilirubin 1+ (Negative) H 10/12/24 13:57 Urine Urobilinogen 0.2 mg/dL (Negative) 10/12/24 13:57 Ur Leukocyte Esterase 1+ (Negative) A 10/12/24 13:57 Urine RBC Too numerous to cnt /hpf (0-2) H 10/12/24 13:57 Urine WBC 25-40 /hpf (0-5) H 10/12/24 13:57 Ur Squamous Epith Cells 5-10 /hpf (0-5) H 10/12/24 13:57 Amorphous Sediment Not Reportable 10/12/24 13:57 Urine Bacteria 2+ /hpf (NONE) H 10/12/24 13:57 Hyaline Casts 0-4 /lpf H 10/12/24 13:57 No radiology studies performed this visit Discharge Plan Discharge Patient Disposition: Home Clinical Impression: Complicated UTI (urinary tract infection) Condition: Stable Prescriptions: New amoxicillin-pot clavulanate 875-125 mg tablet 1 tab PO BID 14 Days Qty: 28 0RF No Action acetaminophen [Tylenol] 325 mg capsule 325 mg PO DAILY PRN (Reason: Pain) propranolol 40 mg tablet 40 mg PO BID 90 Days Qty: 180 1RF omeprazole 20 mg capsule,delayed release(DR/EC) 20 mg PO BID Qty: 180 1RF sumatriptan succinate 100 mg tablet See Rx Instructions PO .COMPLEX Qty: 10 5RF Rx Instructions: take 1 tab at onset of headache; if no relief, may repeat 1 tab after at least 2 hrs; max = 2 tabs/24 hrs PO trazodone 50 mg tablet 100 mg PO .HS PRN (Reason: insomnia) Qty: 60 11RF medroxyprogesterone [Depo-Provera] 150 mg/mL suspension 150 mg IM .Q 3 months Eliquis 5 mg tablet 5 mg PO BID aripiprazole 5 mg tablet 5 mg PO DAILY Qty: 30 11RF bupropion HCl [Wellbutrin XL] 150 mg tablet extended release 24 hr 150 mg PO QAM Qty: 30 11RF buspirone 10 mg tablet 10 mg PO BID Qty: 60 11RF sertraline 100 mg tablet 200 mg PO DAILY Qty: 60 11RF meloxicam 7.5 mg tablet 7.5 mg PO DAILY Qty: 30 0RF Vitamin D3 125 mcg (5,000 unit) Tablet 125 mcg PO DAILY Discharge Orders: Discharge ED (Routine); Ordered 10/12/24 Ordered By: Hayes Draper Referrals: Norma Mendiola FNP [Primary Care Provider, Primary Care Provider] Patient Instructions: Patient Portal & [facility] Instructions Activity Restrictions/Additional Instructions: UTI Post-Stent Discharge Discharge Instructions: UTI Following Ureteral Stent Placement and Removal Diagnosis and Clinical Course: 43-year-old female with persistent lower urinary tract symptoms and laboratory-confirmed UTI following ureteral stent placement and removal. Initial therapy with trimethoprim-sulfamethoxazole was unsuccessful. Postvoid residual and laboratory evaluation excluded obstructive uropathy. The patient is being transitioned to amoxicillin-clavulanate (Augmentin) for ongoing management. Antibiotic Therapy: - Medication: Amoxicillin-clavulanate (Augmentin) - Dose: 875 mg/125 mg orally every 12 hours - Duration: 14 days While the optimal duration of therapy for complicated UTI post-instrumentation is not definitively established, available data and consensus recommendations suggest that 7?14 days is reasonable, particularly in the context of recent source control (i.e., stent removal) and persistent symptoms. The FDA label supports the efficacy of this dosing regimen for complicated UTI. Therapy should be adjusted based on clinical response and microbiological data if available. Follow-Up: - Prompt outpatient follow-up with urology is arranged to monitor for resolution of infection and to address any potential complications related to prior instrumentation. Return Precautions: The patient should be instructed to seek immediate medical attention for any of the following: - Persistent or worsening fever (>38?C/100.4?F) - New or worsening flank or abdominal pain - Nausea or vomiting preventing oral intake - Signs of sepsis (e.g., confusion, tachycardia, hypotension) - Inability to urinate or new-onset urinary retention - Gross hematuria or passage of blood clots - Rash, severe diarrhea, or other signs of antibiotic intolerance Additional Considerations: - Reinforce the importance of completing the full antibiotic course, even if symptoms improve. - Advise on potential side effects of amoxicillin-clavulanate, including gastrointestinal upset and diarrhea, and to report severe or persistent symptoms. - Encourage adequate oral hydration unless contraindicated. - Remind the patient that recurrence of symptoms after completion of therapy warrants prompt reassessment. Rationale: This management approach is consistent with the Infectious Diseases Society of [place] and recent consensus guidelines, which recommend tailoring antibiotic selection and duration to the clinical scenario, with source control (i.e., stent removal) and close follow-up. Amoxicillin-clavulanate is an appropriate choice when guided by susceptibility, and a 7?14 day course is supported for complicated UTI in the post-instrumentation setting. Print Language: Romansh Coding Level of Care Code ED Corporate Statistical Financial Analyst for Ledy Chaudhari
[2024-10-12] MEDS: cefTRIAXone 1,000 mg SDV 1000 MG IVP (14:40)
[2024-10-12 15:09] VITALS: BP 154/87; PULSE 87; O2SAT 95
== END 2024-10-12 15:10 | disposition home or self-care (01) ==
PROVIDERS: Emergency Provider Physician Assistant; PCP Nurse Practitioner Family
DX: N39.0 Urinary tract infection, site not specified (principal); Z79.01 Long term (current) use of anticoagulants; I10 Essential (primary) hypertension
CPT/HCPCS: 36415; 51798; 80053; 81001; 85025; 87077; 87086; 87186; 96374; 96375; 99284; J0696; J1885; J7030

== ENCOUNTER 2025-01-12 09:03 | Outpatient (CLI) | payer BC, MEDICAID, SELFPAY ==
--- NOTE | 2025-01-12 09:06 | MM_ITS ---
WS: [id number] BILATERAL SCREENING DIGITAL TOMOSYNTHESIS MAMMOGRAM WITH CAD HISTORY: SCREENING COMPARISON: 10/01/2023, 09/04/2022 Bilateral CC and MLO views with tomosynthesis and synthetic mammography submitted. Computer aided detection analyzed. Breast composition: The breasts are almost entirely fatty. No suspicious masses, microcalcifications or architectural distortion. MM/MM scr BI tomosynthesis [id number] IMPRESSION: BI-RADS: 1 - Negative. FOLLOW UP: 1 Year Follow-up
== END 2025-01-12 09:04 | disposition home or self-care (01) ==
LOC: RAD 09:04
PROVIDERS: PCP Nurse Practitioner Family; Visit Provider Nurse Practitioner Family
DX: Z12.31 Encounter for screening mammogram for malignant neoplasm of breast (principal); R92.313 Mammographic fatty tissue density, bilateral breasts
CPT/HCPCS: 77063; 77067

== ENCOUNTER → 2025-02-17 14:38 | Outpatient (BNVA) | payer BC, MEDICAID, SELFPAY | PROVIDERS: PCP Nurse Practitioner Family; Visit Provider Internal Medicine Endocrinology, Diabetes & Metabolism | DX: E28.2 Polycystic ovarian syndrome (principal) | CPT/HCPCS: 80053; 83721; 84443 ==